=== PATIENT | female | born 1940 | race African-American/Black ===

== ENCOUNTER 2017-04-15 16:23 | Inpatient (IN) ==
--- NOTE | 2017-04-15 17:01 | Emergency Department Note ---
Disposition Clinical Impression: Hip fracture, left Qualifiers: Encounter type: initial encounter Fracture type: closed Qualified Code(s): S72.002A - Fracture of unspecified part of neck of left femur, initial encounter for closed fracture Disposition: Admitted As Inpatient Condition: Fair Fall HPI - General Chief Complaint: ED Extremity Injury, Lower Stated Complaint: fall, hip injury Time Seen by Provider: 04/15/17 16:38 Source: patient, EMS Mode of arrival: EMS Limitations: no limitations Nursing Notes Reviewed: Yes Vital Signs Reviewed: Yes - History of Present Illness HPI Narrative: 77-year-old female past medical history COPD, hypertension, CVA, CAD, and seizures, presents the emergency department after a fall a local gas station. She reports that she was going in to pay for the gas and tripped on a step in through the door. She states that she fell backwards and landed directly on her left hip, with what does not seem like an axial load on the spine. Her pain is lateral the superior aspect of the femur. He reports no preceding dizziness, and no LOC. She remembers the event in its entirety. She reports that she did not hit her head when she fell. She denies any focal neurologic symptoms. She denies recent illnesses, fevers, chills, dyspnea, chest pain, abdominal pain, nausea, vomiting, change in bowels, or dysuria. 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[employer] Fall From: standing Fall Witnessed: yes Place Fall Occurred: other - Related Data Home Medications Medication Instructions Recorded Confirmed Aspirin [Lo-Dose Aspirin EC] 81 mg PO DAILY 08/15/15 04/15/17 Metoprolol XL (24 HR) Succ [Toprol 25 mg PO DAILY 08/15/15 04/15/17 XL] Simvastatin [Zocor] 40 mg PO HS 08/15/15 04/15/17 Fluticasone/Salmeterol [Advair 1 puff IH BID PRN 02/05/16 04/15/17 100-50 Diskus] Alendronate Sodium [Fosamax] 70 mg PO MO 03/18/16 04/15/17 Cholecalciferol (Vitamin D3) 50,000 unit PO QWEEK 03/18/16 04/15/17 [Vitamin D] Methotrexate [Otrexup] 7.5 mg PO MO 03/18/16 04/15/17 Albuterol Sulfate [Albuterol 2 puff IH Q4H PRN 04/15/17 04/15/17 Inhaler] LevETIRAcetam [Keppra] 500 mg PO BID 04/15/17 04/15/17 Lisinopril/Hydrochlorothiazide 1 each PO DAILY 04/15/17 04/15/17 [Zestoretic 10-12.5 mg Tablet] Allergies Allergy/AdvReac Type Severity Reaction Status Date / Time Iodinated Contrast- Oral and Allergy Hives Verified 03/18/16 11:41 IV Dye All systems ED: reviewed and negative except as stated. Review of Systems: As Per HPI Cardiovascular: Denies: chest pain Respiratory: Denies: dyspnea Gastrointestinal: Denies: nausea, vomiting Fall PMH - Past Medical History Medical history: Reports: hyperlipidemia, hypertension, myocardial infarction, seizures Psychiatric history: Reports: no psych history - Social History Smoking Status: Never smoker Alcohol use: Reports: none Drug use: Reports: none Physical Exam - General Limitations: no limitations General appearance: alert, in no apparent distress - Head Head exam: atraumatic, normocephalic, normal inspection - Eye Eye exam: Present: normal appearance, PERRL, EOMI. Absent: scleral icterus, conjunctival injection - ENT ENT exam: mucous membranes moist - Neck Neck exam: Present: normal inspection, full ROM. Absent: tenderness - Chest Chest inspection: Present: symmetric chest wall rise - Respiratory Respiratory exam: Present: normal lung sounds bilaterally - Cardiovascular Cardiovascular exam: Present: regular rate, normal rhythm, +S1, +S2 - Abdominal Exam Abdominal exam: Present: soft, Non-Tender, normal bowel sounds - Extremities Exam Extremities exam: Present: normal inspection, tenderness (Laterally along the left hip), normal capillary refill. Absent: full ROM, pedal edema, calf tenderness - Expanded Lower Extremity Exam Hip/Pelvis exam: Present: tenderness (Laterally along the left superior femur). Absent: laceration, ecchymosis, external rotation, internal rotation, shortening Course Vital Signs Temperature 98.1 F 04/15/17 16:29 Pulse Rate 71 04/15/17 16:29 Respiratory Rate 20 04/15/17 16:29 Blood Pressure 174/88 04/15/17 16:29 O2 Sat by Pulse Oximetry 100 04/15/17 16:29 Temperature 98.3 F 03/09/18 19:43 Pulse Rate 72 04/15/17 19:43 Respiratory Rate 18 04/15/17 19:43 Blood Pressure 182/81 04/15/17 19:43 O2 Sat by Pulse Oximetry 100 04/15/17 19:43 Oxygen Delivery Oxygen Delivery Room Air Fall - Lab Data Result diagrams: 04/15/17 17:46 04/15/17 17:46 Lab Results 04/15/17 04/15/17 04/15/17 Range/Units 17:46 17:46 17:46 WBC 5.6 (4.3-11.1) K/mcL RBC 3.69 L (3.82-4.97) M/mcL Hgb 10.3 L (11.5-15.4) g/dL Hct 33.8 L (35.3-44.9) % MCV 91.6 (83.0-100.0) fL MCH 27.9 L (28.0-33.3) pg MCHC 30.5 L (31.6-35.5) g/dL RDW 18.2 H (11.5-14.5) % Plt Count 95 L (140-400) K/mcL MPV TNP Immature Gran % 0.5 (0-4) % Seg Neutrophils % 75.4 % Lymphocytes % 15.5 % Monocytes % 5.7 % Eosinophils % 2.5 % Basophils % 0.4 % Neutrophils # 4.2 (1.6-8.9) K/mcL Lymphocytes # 0.9 (0.6-4.6) K/mcL Monocytes # 0.3 (0.0-1.3) K/mcL Eosinophils # 0.1 (0.0-0.6) K/mcL Basophils # 0.0 (0.0-0.2) K/mcL Immature Plt Fraction 5.6 (1.1-6.1) % PT 14.5 H (9.4-12.1) Seconds INR 1.3 Sodium 139 (136-145) mEq/L Potassium 3.8 (3.5-5.1) mEq/L Chloride 107 (98-107) mEq/L Carbon Dioxide 23 (23-29) mEq/L BUN 21 (8-23) mg/dL Creatinine 0.96 (0.60-1.20) mg/dL Est GFR ( Amer) > 60 (> 60) Est GFR (Non-Af Amer) 56 L (> 60) BUN/Creatinine Ratio 22 (6-26) Glucose 104 (70-105) mg/dL Calculated Osmolality 291 (280-300) Calcium 10.0 (8.6-10.3) mg/dL Attestation Statement - Attestation Attestation: I examined this patient and my medical decision-making was reviewed with the Resident Physician. I agree with the documented findings, disposition and treatment plan as described except to the extent set forth below. 77-year-old female presents ED because of injury from a fall. She had a mechanical fall landing on her left hip. Complains of pain in her left groin and left hip. She denies any injury to her head neck chest or abdomen. No back pain. No weakness. Pleasant elderly female in no apparent distress. Neck is nontender to palpation. Trachea midline. Chest clear to auscultation bilaterally. Abdomen soft and nontender. Thoracic and lumbar spine nontender. Pelvis is stable. She has tenderness localized to the left hip and some pain with log rolling but no pain with linear load. Distal pulses are normal. Extremities consistent with an intertrochanteric fracture of the left hip. On-call orthopedics were notified and she was admitted to medical service.
[2017-04-15] MEDS ORDERED: *HR* HYDROcodone/Acet 5/325 mg TABLET PO ONE (17:32)
[2017-04-15 17:58] LABS: Hemoglobin 10.3 g/dL (11.5-15.4); Red Cell Distribution Width 18.2 % (11.5-14.5)
[2017-04-15 18:00] LABS: Basophils % 0.4 %; Eosinophils # 0.1 K/mcL (0.0-0.6); Eosinophils % 2.5 %; Hematocrit 33.8 % (35.3-44.9); Immature Granulocytes % 0.5 % (0-4); Immature Platelets 5.6 % (1.1-6.1); Lymphocytes # 0.9 K/mcL (0.6-4.6); Lymphocytes % 15.5 %; Mean Corpuscular HGB Conc 30.5 g/dL (31.6-35.5); Mean Corpuscular Hemoglobin 27.9 pg (28.0-33.3); Mean Corpuscular Volume 91.6 fL (83.0-100.0); Monocytes # 0.3 K/mcL (0.0-1.3); Monocytes % 5.7 %; Neutrophils # 4.2 K/mcL (1.6-8.9); Red Blood Count 3.69 M/mcL (3.82-4.97); Segmented Neutrophils % 75.4 %
[2017-04-15 18:01] LABS: Platelet Count 95 K/mcL (140-400)
[2017-04-15 18:03] LABS: INR 1.3; Prothrombin Time 14.5 Seconds (9.4-12.1)
[2017-04-15 18:21] LABS: BUN/Creatinine Ratio 22 (6-26); Blood Urea Nitrogen 21 mg/dL (8-23); Carbon Dioxide 23 mEq/L (23-29); Chloride 107 mEq/L (98-107); Glucose 104 mg/dL (70-105); Osmolality,Calculated 291 (280-300); Potassium 3.8 mEq/L (3.5-5.1); Sodium 139 mEq/L (136-145); eGFR For African Americans > 60 (> 60); eGFR For Non-African Americans 56 (> 60)
[2017-04-15] MEDS ORDERED: Acetaminophen 325 MG TABLET PO PRN (18:53)
[2017-04-15] MEDS ORDERED: Naloxone 0.4 MG/ML INJ IVP PRN (18:53)
--- NOTE | 2017-04-15 19:01 | Internal Med History&Physical ---
Date of Encounter: 04/15/17 Time of Encounter: 18:59 Assessment and Plan (1) Intertrochanteric fracture of left hip Current visit: Yes Status: Acute Left intertrochanteric fracture after a fall Mobilization, pain control Orthopedic surgery consulted, nothing by mouth after midnight for possible surgical procedure IV fluids Medium risk surgery, low risk for cardiac complications Omeprazole for GI prophylaxis and subcutaneous tenderness heparin for DVT prophylaxis. The patient will be admitted as inpatient, expected to stay more than 2 midnights. Full code. Time spent on this admission 40 minutes Qualifiers: Encounter type: initial encounter Fracture type: closed Fracture alignment: nondisplaced Qualified Code(s): S72.145A - Nondisplaced intertrochanteric fracture of left femur, initial encounter for closed fracture (2) Accelerated hypertension Current visit: Yes Status: Acute Likely exacerbated by pain Continue lisinopril, hold hydrochlorothiazide Continue hydralazine IV as needed (3) Chronic kidney disease, stage III (moderate) Current visit: Yes Status: Acute (4) Rheumatoid arthritis Current visit: Yes Status: Acute Hold methotrexate for now Qualifiers: Rheumatoid arthritis location: unspecified site Rheumatoid factor presence : with rheumatoid factor Qualified Code(s): M05.9 - Rheumatoid arthritis with rheumatoid factor, unspecified (5) Pancytopenia Current visit: Yes Status: Acute (6) CAD (coronary artery disease) Current visit: Yes Status: Acute May continue aspirin and metoprolol Qualifiers: Coronary Disease-Associated Artery/Lesion type: [place] artery [place] vs. transplanted heart: [place] heart Associated angina: without angina Qualified Code(s): I25.10 - Atherosclerotic heart disease of [place] coronary artery without angina pectoris Internal Medicine - H&P: HPI Chief complaint: Left hip pain Admitted From: Emergency Dept History of present illness: Ms. Westfall is a 77 year old female with a past medical history of rheumatoid arthritis on methotrexate, chronic kidney disease stage III, CAD, COPD not oxygen dependent, seizure disorders and bicytopenia who came to the emergency room complaining of severe left hip pain 10 out of 10 in intensity after falling at a gas station. Patient says that she never lost consciousness, was never dizzy and did not hit her head, she tripped and fell backwards. The x- ray shows a left intertrochanteric fracture. Platelets are 95, patient received a dose of hydrocodone which helped with the pain. Denies any chest pain, short of breath, no abdominal pain, no dysuria. Blood pressure is elevated at 174/88 Past Med Surg Social Fam HX - Past Medical History Medical history: hyperlipidemia, hypertension, myocardial infarction, seizures, other (Chronic leukopenia, chronic kidney disease stage III, CAD/NE in 2009 with stents, COPD not oxygen dependent, seizure disorder, GERD, osteoporoses, pancytopenia, vitamin D deficiency) Psychiatric history: no psych history - Past Surgical History Surgical History: other (Cardiac catheterization with stents, right wrist cyst removal) - Social History Smoking Status: Never smoker Alcohol use: none Drug use: none - Additional Family History Additional family history: Brother with hypertension, NE and diabetes, father with myocardial infarction, mother with colon cancer Internal Medicine - H&P: Meds Aspirin [Lo-Dose Aspirin EC] 81 mg PO DAILY 08/15/15 [History] Metoprolol XL (24 HR) Succ [Toprol XL] 25 mg PO DAILY 08/15/15 [History] Simvastatin [Zocor] 40 mg PO HS 08/15/15 [History] Fluticasone/Salmeterol [Advair 100-50 Diskus] 1 puff IH BID PRN 02/05/16 [ History] Alendronate Sodium [Fosamax] 70 mg PO MO 03/18/16 [History] Cholecalciferol (Vitamin D3) [Vitamin D] 50,000 unit PO QWEEK 03/18/16 [History] Methotrexate [Otrexup] 7.5 mg PO MO 03/18/16 [History] Albuterol Sulfate [Albuterol Inhaler] 2 puff IH Q4H PRN 04/15/17 [History] LevETIRAcetam [Keppra] 500 mg PO BID 04/15/17 [History] Lisinopril/Hydrochlorothiazide [Zestoretic 10-12.5 mg Tablet] 1 each PO DAILY [History] 3 Allergy/AdvReac Type Severity Reaction Status Date / Time Iodinated Contrast- Oral and Allergy Hives Verified 03/18/16 11:41 IV Dye All Systems PM: A 10-system review of systems was performed and is negative for pertinent findings except as documented above in the HPI. Review of systems: No fevers or chills, other systems out of the 10 reviewed were negative - Constitutional Vitals: Temp Pulse Resp BP Pulse Ox 98.1 F 74 24 170/90 98 04/15/17 16:29 04/15/17 18:22 04/15/17 18:22 04/15/17 18:22 04/15/17 18:22 General appearance: Present: A&O X 3 - Head Head exam: Present: atraumatic, normocephalic - Eye Eye exam: Present: PERRL, conjuntiva pink, sclera anicteric Pupils: Present: PERRL - Neck Neck exam general surgery: Present: supple, trachea midline. Absent: lymphadenopathy - Respiratory Respiratory exam: Present: CTAB. Absent: accessory muscle use, rales, rhonchi, wheezes - Cardiovascular Cardiovascular exam: Present: RRR, +S1, +S2. Absent: diastolic murmur, gallop, rubs, systolic murmur - GI/Abdominal GI/Abdominal exam: Present: normal bowel sounds, soft, no peritoneal signs. Absent: distended, tenderness - Extremities Exam Extremities exam: Present: warm, radial pulses palpable and symmetrical. Absent : calf tenderness, cyanotic, pedal edema - Neurological Exam Neurological exam: Present: CN II-XII intact, oriented X3, no focal deficits. Absent: pronater drift, facial droop, speech deficit Additional comments: Swelling in the left hip, no ecchymoses - Skin Skin exam: Present: dry, intact Internal Med - H&P Results - Labs CBC & Chem 7: 04/15/17 17:46 04/15/17 17:46 Labs: Short CBC 04/15/17 Range/Units 17:46 WBC 5.6 (4.3-11.1) K/mcL Hgb 10.3 L (11.5-15.4) g/dL Hct 33.8 L (35.3-44.9) % Plt Count 95 L (140-400) K/mcL Neutrophils # 4.2 (1.6-8.9) K/mcL BMP 04/15/17 17:46 Sodium 139 Potassium 3.8 Chloride 107 Carbon Dioxide 23 BUN 21 Creatinine 0.96 Glucose 104 Calcium 10.0 - Impressions ITS Impressions Hip X-Ray 04/15/17 16:45 IMPRESSION: Left intertrochanteric fracture. D/ / 04/15/2017 17:23:37 Amari Hutson MD / josh Interpreting Provider: Amari Hutson MD
[2017-04-15] MEDS: 0.9 % Sodium Chloride 1,000 ML IVC SCH (20:08)
[2017-04-15] MEDS: levETIRAcetam 250 MG TABLET PO SCH (20:08)
[2017-04-15] MEDS: *HR* OxyCODONE Immed Rel 5 MG TABLET PO PRN (20:09)
[2017-04-15] MEDS: Metoprolol XL (24 HR) Succ 25 MG TAB.ER.24H PO SCH (22:29)
[2017-04-16 02:00] LABS: Hematocrit 29.7 % (35.3-44.9); Hemoglobin 9.2 g/dL (11.5-15.4); Mean Corpuscular Hemoglobin 28.1 pg (28.0-33.3); Mean Corpuscular Volume 90.8 fL (83.0-100.0); Red Blood Count 3.27 M/mcL (3.82-4.97); Red Cell Distribution Width 17.9 % (11.5-14.5)
[2017-04-16 02:01] LABS: Platelet Count 96 K/mcL (140-400)
[2017-04-16 02:04] LABS: INR 1.5
[2017-04-16 02:11] LABS: BUN/Creatinine Ratio 26 (6-26); Blood Urea Nitrogen 22 mg/dL (8-23); Calcium 9.4 mg/dL (8.6-10.3); Carbon Dioxide 23 mEq/L (23-29); Chloride 108 mEq/L (98-107); Chol/HDL Ratio 2.6 (0-4.9); Cholesterol 123 mg/dL (< 200); Glucose 145 mg/dL (70-105); HDL Cholesterol 48 mg/dL (40-59); LDL Cholesterol,Calculated 63 mg/dL (0-99); Osmolality,Calculated 292 (280-300); Potassium 4.4 mEq/L (3.5-5.1); Sodium 138 mEq/L (136-145); Triglycerides 60 mg/dL (< 150); eGFR For African Americans > 60 (> 60); eGFR For Non-African Americans > 60 (> 60)
[2017-04-16] MEDS ORDERED: Ondansetron 4 MG/2 ML VIAL IVP PRN (03:17)
[2017-04-16] MEDS: *HR* Heparin 5,000 UNIT/ML VIAL SQ SCH ×2 (05:49→17:10)
[2017-04-16] MEDS: *HR* HYDROcodone/Acet 5/325 mg TABLET PO PRN ×2 (07:34→20:40)
[2017-04-16] MEDS: Aspirin Enteric Coated 81 MG Tablet PO SCH (07:47)
[2017-04-16] MEDS: Metoprolol XL (24 HR) Succ 25 MG TAB.ER.24H PO SCH (07:47)
[2017-04-16] MEDS: levETIRAcetam 250 MG TABLET PO SCH ×2 (07:47→20:40)
--- NOTE | 2017-04-16 09:04 | Internal Med Progress Note ---
Date of Encounter: 04/16/17 Time of Encounter: 09:01 - Assessment and plan (1) Intertrochanteric fracture of left hip Current Visit: Yes Status: Acute Assessment and plan: Accidental left intertrochanteric fracture after a fall. Continue current pain control patient's pain seems to be appropriately controlled at this point. Patient remains nothing by mouth. Orthopedic surgery on board. Potential surgery today. She is a medium risk for surgery at a low risk for cardiac complications at this point. She is medically optimized. I will continue her beta blockers perioperatively. Recommend holding Pan inhibitors and hydrochlorothiazide which can be restarted postoperatively. I will continue her Keppra in the perioperative period Qualifiers: Encounter type: subsequent encounter Fracture type: closed Fracture alignment: nondisplaced Fracture healing: with routine healing Qualified Code(s): S72.145D - Nondisplaced intertrochanteric fracture of left femur, subsequent encounter for closed fracture with routine healing (2) Chronic kidney disease, stage III (moderate) Current Visit: Yes Status: Acute Assessment and plan: We will continue to monitor. Check serial BMP. - Time Spent With Patient 25 - 35 minutes - Subjective Interval history: Patient reports that her pain is better controlled since yesterday. She denies any new fevers or chills at this time. Denies any chest pain, shortness of breath - Constitutional Vitals: Temp Pulse Resp BP Pulse Ox 98.7 F 82 16 160/71 98 04/16/17 06:39 04/16/17 06:39 04/16/17 06:39 04/16/17 06:39 04/16/17 07:37 General appearance: Present: A&O X 3 Exam: GENERAL: Alert, moderate distress, cooperative EYES: PERRLA, EOMI EARS: External ears normal, canals clear OROPHARYNX: Lips, mucosa, and tongue normal. Teeth and gums normal. Oropharynx normal. NECK: No jugulovenous distention, No carotid bruits, Carotid pulse normal contour, Supple LUNGS: Lungs clear to auscultation, Good diaphragmatic excursion CARDIAC: Normal S1 and S2; no rubs, murmurs, or gallops ABDOMEN: Abdomen soft, non-tender, BS normal, No masses or organomegaly EXTREMITIES: Left lower extremity: Tenderness to palpation over the left greater trochanter. External rotation and shortening noted as compared to right lower extremity NEURO: Gait normal. Reflexes normal and symmetric. Sensation grossly intact, Cranial nerves II-XII intact PULSES: 2+ radial, 2+ carotid Rest of the exam is non contributory Internal Medicine: Result - Labs CBC & Chem 7: 04/16/17 01:34 04/16/17 01:34 Labs: Short CBC 04/16/17 Range/Units 01:34 WBC 9.2 D (4.3-11.1) K/mcL Hgb 9.2 L (11.5-15.4) g/dL Hct 29.7 L (35.3-44.9) % Plt Count 96 L (140-400) K/mcL BMP 04/16/17 01:34 Sodium 138 Potassium 4.4 Chloride 108 H Carbon Dioxide 23 BUN 22 Creatinine 0.85 Glucose 145 H Calcium 9.4 - ABG Interpretation ABG results: PT/INR, D-dimer PT 16.0 Seconds (9.4-12.1) H 04/16/17 01:34 Consult Discharge Plan - Plan Referrals: Giorgio Landis MD [Primary Care Provider] -
[2017-04-16] MEDS: 0.9 % Sodium Chloride 1,000 ML IVC SCH (09:20)
--- NOTE | 2017-04-16 10:44 | Orthopedic Consult Note ---
Date of Encounter: 04/16/17 Time of Encounter: 10:42 Assessment and Plan (1) Intertrochanteric fracture of left hip Current Visit: Yes Status: Acute The diagnosis and treatment options were discussed with Bonnie. After discussing the pros and cons of treatment options including non-operative and operative intervention, the patient has elected to proceed with left hip cephallomedullary nail to allow for the patient to get out of bed and ambulate. The risks and benefits of the procedure were fully explained in detail, including but not limited to the risk of infection, neurovascular injury, continued pain or stiffness, failure of surgery, reinjury, or need for additional surgery, DVT, PE, general risks of anesthesia and loss of limb or life. No guarantees were given or implied and all questions were answered. The patient understands all the risks and does wish to proceed with written consent. Surgery will be done today. NPO. Cleared by medicine. Qualifiers: Encounter type: subsequent encounter Fracture type: closed Fracture alignment: displaced Fracture healing: with routine healing Qualified Code(s ): S72.142D - Displaced intertrochanteric fracture of left femur, subsequent encounter for closed fracture with routine healing History of Present Illness HPI: Ms. Westfall is a 77 year old female who had a mechanical fall yesterday. She tripped over a cement block and a gas station and fell onto her left hip. She had immediate pain and deformity in the left hip and was brought to the emergency department. Imaging at that time showed a displaced left intertrochanteric fracture so she was admitted for definitive management. She denies any chest pain, shortness of breath loss of consciousness prior to the fall. No pain in any of her other extremities. Past Med Surg Social Fam HX - Past Medical History Medical history: hyperlipidemia, hypertension, myocardial infarction, seizures Psychiatric history: no psych history - Past Surgical History Surgical History: other - Social History Smoking Status: Never smoker Alcohol use: none Drug use: none Medications and Allergies Aspirin [Lo-Dose Aspirin EC] 81 mg PO DAILY 08/15/15 [History] Metoprolol XL (24 HR) Succ [Toprol XL] 25 mg PO DAILY 08/15/15 [History] Simvastatin [Zocor] 40 mg PO HS 08/15/15 [History] Fluticasone/Salmeterol [Advair 100-50 Diskus] 1 puff IH BID PRN 02/05/16 [ History] Alendronate Sodium [Fosamax] 70 mg PO MO 03/18/16 [History] Cholecalciferol (Vitamin D3) [Vitamin D] 50,000 unit PO QWEEK 03/18/16 [History] Methotrexate [Otrexup] 7.5 mg PO MO 03/18/16 [History] Albuterol Sulfate [Albuterol Inhaler] 2 puff IH Q4H PRN 04/15/17 [History] LevETIRAcetam [Keppra] 500 mg PO BID 04/15/17 [History] Lisinopril/Hydrochlorothiazide [Zestoretic 10-12.5 mg Tablet] 1 each PO DAILY [History] 3 Allergy/AdvReac Type Severity Reaction Status Date / Time Iodinated Contrast- Oral and Allergy Hives Verified 03/18/16 11:41 IV Dye All Systems Reviewed: The remainder of the systems were reviewed and are negative Physical Exam - Constitutional Vitals: Temp Pulse Resp BP Pulse Ox 98.7 F 82 16 160/71 98 04/16/17 06:39 04/16/17 06:39 04/16/17 06:39 04/16/17 06:39 04/16/17 07:37 Exam: Consult Exam: Constitutional -Vitals reviewed -The patient is well developed and well nourished. -Mood is pleasant. -The patient is well groomed. Psychiatric -The patient is fully alert and oriented x 3. Respiratory: -Respiratory effort normal Abdomen: -Soft abdomen -Non tender -Non distended: Left upper extremity: -No deformities. The overlying skin is intact. No obvious signs of acute trauma. -No tenderness to palpation throughout. -No significant pain with passive motion of the shoulder, elbow, wrist, and fingers within the limits of the bed. -Able to make an "OK" sign, cross the index and long fingers, and extend the thumb. -Sensation grossly intact to light touch throughout the median, radial, and ulnar distributions. -Radial pulse is present; Fingers have good capillary refill. Right upper extremity: -No deformities. The overlying skin is intact. No obvious signs of acute trauma. -No tenderness to palpation throughout. -No significant pain with passive motion of the shoulder, elbow, wrist, and fingers within the limits of the bed. -Able to make an "OK" sign, cross the index and long fingers, and extend the thumb. -Sensation grossly intact to light touch throughout the median, radial, and ulnar distributions. -Radial pulse is present; Fingers have good capillary refill. Left lower extremity: -Extremity short and externally rotated -Pain with logroll and internal rotation at the hip -Able to dorsiflex and plantarflex the ankle and toes. -Sensation is grossly intact to light touch throughout the sural, saphenous, superficial peroneal, and deep peroneal distributions. -Toes have good capillary refill. Right lower extremity: -No deformities. The overlying skin is intact. No obvious signs of acute trauma. -No tenderness to palpation throughout. -No pain with passive motion of the hip, knee, ankle, and toes within the limits of the bed. -No pain with axial loading of the thigh. -Able to dorsiflex and plantarflex the ankle and toes. -Sensation is grossly intact to light touch throughout the sural, saphenous, superficial peroneal, and deep peroneal distributions. -Toes have good capillary refill. Results - Labs Result Diagrams: 04/16/17 01:34 04/16/17 01:34 Labs: Abnormal lab results RBC 3.27 M/mcL (3.82-4.97) L 04/16/17 01:34 Hgb 9.2 g/dL (11.5-15.4) L 04/16/17 01:34 Hct 29.7 % (35.3-44.9) L 04/16/17 01:34 MCHC 31.0 g/dL (31.6-35.5) L 04/16/17:34 RDW 17.9 % (11.5-14.5) H 04/16/17 01:34 Plt Count 96 K/mcL (140-400) L 04/16/17 01:34 PT 16.0 Seconds (9.4-12.1) H 04/16/17 01:34 Chloride 108 mEq/L (98-107) H 04/16/17 01:34 Glucose 145 mg/dL (70-105) H 04/16/17 01:34 H & H 04/16/17 Range/Units 01:34 Hgb 9.2 L (11.5-15.4) g/dL Hct 29.7 L (35.3-44.9) % All other labs normal. - Diagnostic results Hip x-ray: report reviewed (Displaced left intertrochanteric fracture), image reviewed Consult Discharge Plan - Plan Referrals: Giorgio Landis MD [Primary Care Provider] -
--- NOTE | 2017-04-16 11:59 | Anesthesia Evaluation PreOp ---
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: Seizures (one seizure 6 years ago; takes Keppra now) Other Medical History: Renal (ckd III), GERD, Other (chronic leukopenia, pancytopenia, vit D deficiency) Anesthesia History: No Prior Anesthetic Complications Alcohol Use: none Drug use: none Medications and Allergies Aspirin [Lo-Dose Aspirin EC] 81 mg PO DAILY 08/15/15 [History] Metoprolol XL (24 HR) Succ [Toprol XL] 25 mg PO DAILY 08/15/15 [History] Simvastatin [Zocor] 40 mg PO HS 08/15/15 [History] Fluticasone/Salmeterol [Advair 100-50 Diskus] 1 puff IH BID PRN 02/05/16 [ History] Alendronate Sodium [Fosamax] 70 mg PO MO 03/18/16 [History] Cholecalciferol (Vitamin D3) [Vitamin D] 50,000 unit PO QWEEK 03/18/16 [History] Methotrexate [Otrexup] 7.5 mg PO MO 03/18/16 [History] Albuterol Sulfate [Albuterol Inhaler] 2 puff IH Q4H PRN 04/15/17 [History] LevETIRAcetam [Keppra] 500 mg PO BID 04/15/17 [History] Lisinopril/Hydrochlorothiazide [Zestoretic 10-12.5 mg Tablet] 1 each PO DAILY [History] 3 Allergy/AdvReac Type Severity Reaction Status Date / Time Iodinated Contrast- Oral and Allergy Hives Verified 03/18/16 11:41 IV Dye - Meds/Allergy Pre-op Review Medications Reviewed: Yes Allergies Reviewed: Yes Beta Blockers on Current Med List: Yes (metoprolol) If Beta Blockers taken, Date/Time (Last Dose taken): 04-16-17 metoprolol 7:47 Anesthesia Results - Labs 04/16/17 01:34 04/16/17 01:34 Anesthesia Exam Last Vital Signs Temp 98.6 F 04/16/17 10:41 Pulse 77 04/16/17 10:41 Resp 16 04/16/17 10:41 BP 143/76 03/10/18 10:41 Pulse Ox 96 04/16/17 10:41 Weight: 76 kg NPO (# of Hours): > 8 hrs - HEENT Pupil (Motor): Pupils equal, EOMI Mallampati: III Teeth: Poor dentition Oral Opening: Greater than 3 - CONCERT MANAGER LOC: Oriented - Cardiac Rhythm: Regular Murmur: None - Pulmonary Breath Sounds: bilateral Clear Respiratory Effort: Symmetrical Anesthesia Assess/Plan ASA Score: 3 Modified Jeancarlos Scale for Level of Consciousness: Cooperative, oriented, and tranquil Anesthetic Plan: General Monitoring Plan: Standard Monitors Recovery Plan: PACU
[2017-04-16] MEDS ORDERED: *HR* Labetalol 20 MG/4 ML SYRINGE IVP PRN (12:05)
[2017-04-16] MEDS ORDERED: MORPHINE SUL Oral CONC 10 MG/0.5 ML ORAL.SYG SL PRN (12:05)
[2017-04-16] MEDS ORDERED: *HR* OxyCODONE Immed Rel 5 MG TABLET PO PRN ×2 (12:05→13:11)
[2017-04-16] MEDS ORDERED: EPHEDrine 50 MG/ML VIAL ONE (12:08)
[2017-04-16] MEDS ORDERED: Ondansetron 4 MG/2 ML VIAL ONE ×2 (12:08→13:01)
[2017-04-16] MEDS ORDERED: Lidocaine -MPF 2% 2 ML VIAL ONE (12:08)
[2017-04-16] MEDS ORDERED: Dexamethasone 4 MG/ML VIAL ONE ×2 (12:08→13:01)
[2017-04-16] MEDS ORDERED: *HR* Propofol 200 MG/20 ML VIAL IVP ONE (12:08)
[2017-04-16] MEDS ORDERED: *HR* FentaNYL (PF) 100 MCG/2 ML VIAL ONE (12:08)
[2017-04-16] MEDS ORDERED: *HR* PHENYLEPHRINE 1,000 MCG/10 ML SYRINGE IVP ONE (12:09)
[2017-04-16] MEDS ORDERED: Lacri-Lube 3.5 GM TUBE ONE (12:36)
--- NOTE | 2017-04-16 13:33 | Physician Discharge Referral ---
- Diagnosis (1) Intertrochanteric fracture of left hip Status: Acute - Transfer Medications Home Medications: Aspirin [Lo-Dose Aspirin EC] 81 mg PO DAILY 08/15/15 [History] Metoprolol XL (24 HR) Succ [Toprol XL] 25 mg PO DAILY 08/15/15 [History] Simvastatin [Zocor] 40 mg PO HS 08/15/15 [History] Fluticasone/Salmeterol [Advair 100-50 Diskus] 1 puff IH BID PRN 02/05/16 [ History] Alendronate Sodium [Fosamax] 70 mg PO MO 03/18/16 [History] Cholecalciferol (Vitamin D3) [Vitamin D] 50,000 unit PO QWEEK 03/18/16 [History] Methotrexate [Otrexup] 7.5 mg PO MO 03/18/16 [History] Albuterol Sulfate [Albuterol Inhaler] 2 puff IH Q4H PRN 04/15/17 [History] LevETIRAcetam [Keppra] 500 mg PO BID 04/15/17 [History] Lisinopril/Hydrochlorothiazide [Zestoretic 10-12.5 mg Tablet] 1 each PO DAILY [History] Allergies/Adverse Reactions: 3 Allergy/AdvReac Type Severity Reaction Status Date / Time Iodinated Contrast- Oral and Allergy Hives Verified 03/18/16 11:41 IV Dye - Respiratory Orders Smoking Cessation: Smoking cessation has been advised. For more information, call the [place] Tobacco Quit Line at 0-301-YPHE-NOW. - Mobility Orders Ambulate - Rehabiliation Orders Rehab Potential: Fair Rehab Orders: ROM Exercises, Evaluation for Physical Therapy, Evaluation for Occupational Therapy - Treatments List/Other: SHELTER DISCHARGE INSTRUCTIONS Dr. Cullen PROCEDURE PERFORMED Reduction and fixation of left hip. Incision care -Keep clear dressing in place. If dressing becomes saturated, may perform daily dressing changes to the left hip with dry gauze and either paper tape or medipore tape. -Avoid soaking wound in water (no hot tubs, bathtubs, swimming pools). -May shower after 2 weeks from surgery date. Carefully wash incision with soap and water. Gently pat it dry. Don't rub the incision, or apply creams or lotions. Sit on a shower stool when showering to keep from falling. Weight bearing status -Weightbearing as tolerated to the bilateral lower extremities. Medications -Pain medication per the discharging medical doctor -Enteric coated aspirin 325 mg by mouth twice per day for 28 days from the date of the surgery. [-Resume 50,000 units of vitamin D2 weekly and 1200 mg of calcium supplementation per day.] Other -Knee high EMMA hose 23 hours per day -Consult physical and occupational therapy for mobilization. -Up to chair with assistance at least twice per day. -Follow up with your primary care physician to discuss testing for bone mineral density. Follow-Up -Follow-up with Dr. Cullen in office in 2 weeks from the surgery date for a post-operative evaluation. -Call the office at [phone] to schedule or confirm your appointment. -Follow up with your primary care physician to discuss testing for bone mineral density. - Diet Orders Regular CERTIFICATION: I certify that the transfer of the above named patient to an Extended Care Facility is necessary for the continuing treatment of the diagnosis listed. The above information is true and accurate reflection of patient's current condition. Confidential - Redisclosure prohibited without a patient's written consent.
--- NOTE | 2017-04-16 13:36 | Orthopedic Operative Note ---
Date of procedure: 04/16/17 Pre-op diagnosis: Left hip intertrochanteric fracture Post-op diagnosis: same Procedure: INDICATIONS: This is a 77-year-old female who had a mechanical fall and sustained a displaced left hip intertrochanteric fracture. After discussing the procedure at length, the patient elected for operative management with a cephalomedullary nail of the left hip. The risks and benefits of the procedure were fully explained. Those risks include but are not limited to, infection, neurovascular injury, continued pain, arthritis, stiffness, further injury, need for further surgery, DVT, PE, loss of limb, and loss of life. The patient understood all of these risks and wished to proceed. Informed consent was obtained. No guarantees were stated or implied. OPERATIVE REPORT: The patient was identified in the holding area. The left lower extremity was marked, the patient was taken to the operating room and general anesthetic was administered on the hospital bed. The patients head, neck and airway were protected by anesthesia through the case. The patient was then transferred to the fracture table and placed in the supine position with a well padded perineal post. All bony prominences were well padded. The left leg was attached to the traction device on the fracture bed. The right leg was then placed in a well leg [place] and positioned out of the way of fluoroscopy. We then utilized the fracture table to reduce the fracture and obtained fluoroscopic images in AP and lateral planes confirming alignment. The left lower extremity was then prepped and draped in the normal manner. Preoperative antibiotics were given prior to incision. A surgical time out protocol was then performed. We then made an incision just proximal to the greater trochanter. We dissected down and through the IT band. We were then able to palpate the greater trochanter and we placed a guidepin in the appropriate starting position on the greater trochanter. We advanced the guidepin and the proximal femur slightly and then confirmed the position in both AP and lateral planes. After confirming acceptable pin placement, we advanced the pin to the level of the lesser trochanter. We then utilized an entry reamer over the pin to open up the canal. We then placed a 11 mm size nail. We advanced the nail to the appropriate depth taking care to avoid any further injury. When the nail was at the appropriate depth we used the outrigger to place the blade into the femoral head. We confirmed central location of the blade on both AP and lateral x-rays. We used the outrigger to obtain compression across the fracture site that was visible on fluoroscopy. After confirming acceptable alignment of the fracture, we then used the guide to place a distal locking screw from lateral to medial. At this point we obtained final fluoroscopic images of the left hip and femur in both AP and lateral planes. We then thoroughly irrigated the wounds and closed the IT band with 0 Vicryl. Subcutaneous tissues were closed with 2-0 stratafix. Skin was closed with zipline. We then placed sterile dressings the patient was awoken by anesthesia and transferred to PACU in stable condition. Patient tolerated the procedure well. Postop plan: The patient will be transferred back to the floor and will be weight-bearing as tolerated postop. Implants: Synthes 11 mm short TFN nail Complications: none Anesthesia: NATALI Surgeon: Dwain Cullen Was there an retirement assistant present: No Estimated blood loss (cc): 50 Condition: stable Disposition: PACU
--- NOTE | 2017-04-16 14:32 | Anesthesia Evaluation Post Op ---
Date of Encounter: 04/16/17 Time of Encounter: 14:31 - Vital Signs Vital Signs: Last Vital Signs Temp 98.6 F 04/16/17 14:17 Pulse 76 04/16/17 14:17 Resp 20 04/16/17 14:17 BP 150/81 04/16/17 14:17 Pulse Ox 98 04/16/17 14:17 - Lungs Lungs: Clear Ascult./Percussion - Airway Airway: Non-obstructed - Cardiovascular Regular Rate - Mental Status Mental Status: Alert & Oriented, Answers Appropriately - Pain Pain Scale: 2 - Nausea Vomiting Nausea Vomiting: Not Present - Hydration Hydration: NPO - Discharge PostOp Status: Transfer Patient to floor
[2017-04-16] MEDS: CeFAZolin Premix DUPLEX 2,000 MG/50 ML BAG IVPB SCH (20:40)
[2017-04-17 04:02] LABS: Basophils % 0.1 %; Hematocrit 22.6 % (35.3-44.9); Immature Granulocytes % 0.5 % (0-4); Mean Corpuscular HGB Conc 30.5 g/dL (31.6-35.5); Nucleated Red Blood Cells 0.2 /100 WBC (0)
[2017-04-17 04:04] LABS: Hemoglobin 6.9 g/dL (11.5-15.4); Immature Platelets 6.1 % (1.1-6.1); Lymphocytes # 1.1 K/mcL (0.6-4.6); Lymphocytes % 8.9 %; Mean Corpuscular Hemoglobin 28.4 pg (28.0-33.3); Monocytes # 0.8 K/mcL (0.0-1.3); Monocytes % 6.8 %; Neutrophils # 10.3 K/mcL (1.6-8.9); Platelet Count 93 K/mcL (140-400); Red Blood Count 2.43 M/mcL (3.82-4.97); Red Cell Distribution Width 19.1 % (11.5-14.5); Segmented Neutrophils % 83.7 %
[2017-04-17] MEDS: CeFAZolin Premix DUPLEX 2,000 MG/50 ML BAG IVPB SCH (04:12)
[2017-04-17 04:30] LABS: BUN/Creatinine Ratio 24 (6-26); Blood Urea Nitrogen 24 mg/dL (8-23); Calcium 8.1 mg/dL (8.6-10.3); Carbon Dioxide 24 mEq/L (23-29); Chloride 109 mEq/L (98-107); Glucose 155 mg/dL (70-105); Osmolality,Calculated 291 (280-300); Potassium 4.5 mEq/L (3.5-5.1); Sodium 137 mEq/L (136-145); eGFR For African Americans > 60 (> 60); eGFR For Non-African Americans 53 (> 60)
[2017-04-17] MEDS: *HR* Heparin 5,000 UNIT/ML VIAL SQ SCH ×2 (05:38→16:09)
[2017-04-17] MEDS: Metoprolol XL (24 HR) Succ 25 MG TAB.ER.24H PO SCH (07:39)
[2017-04-17] MEDS: Aspirin Enteric Coated 81 MG Tablet PO SCH (07:39)
[2017-04-17] MEDS: levETIRAcetam 250 MG TABLET PO SCH ×2 (07:39→19:43)
[2017-04-17] MEDS: *HR* HYDROcodone/Acet 5/325 mg TABLET PO PRN ×2 (07:39→19:43)
[2017-04-17] MEDS ORDERED: 0.9 % Sodium Chloride 250 ML ONE ×2 (10:06→13:33)
--- NOTE | 2017-04-17 10:46 | Orthopedics Progress Note ---
Date of Encounter: 04/17/17 Time of Encounter: 10:44 - Assessment and Plan (1) Intertrochanteric fracture of left hip Current Visit: Yes Status: Acute Qualifiers: Encounter type: subsequent encounter Fracture type: closed Fracture alignment: displaced Fracture healing: with routine healing Qualified Code(s ): S72.142D - Displaced intertrochanteric fracture of left femur, subsequent encounter for closed fracture with routine healing Subjective Interval history: S: Doing fine first day s/p L hip CMN. Pain well controlled. Has been up to side of bed. Denies cp/sob. No f/c/ns. O: AFVSS Hg 6.9 GEN -- NAD, AAOx3 LLE Dress c/d/i +EHL/PF/DF DNVI s/s/t/sp/dp A/P: POD#1 s/p L CMN WBAT with PT PO pain control 2u PRBC ordered Discharge planning for rehab Objective Vital signs: Vital Signs Temp Pulse Resp BP Pulse Ox 04/17/17 10:39 98.1 F 83 14 97/59 04/17/17 10:24 97.7 F 83 16 90/53 96 04/17/17 06:28 98.4 F 81 16 95/58 98 04/17/17 04:34 98.3 F 77 16 92/63 99 04/17/17 00:08 97.8 F 75 16 98/59 99 04/16/17 20:49 108/53 04/16/17 19:40 97.5 F L 72 17 92/59 96 04/16/17 19:38 92/59 04/16/17 19:35 97.5 F L 65 18 78/45 95 04/16/17 18:07 98.7 F 86 16 96/61 93 04/16/17 17:08 98.2 F 81 16 127/65 94 04/16/17 15:45 98.2 F 76 15 135/72 100 04/16/17 15:12 73 18 150/75 99 04/16/17 15:00 98.0 F 73 18 150/75 99 04/16/17 14:38 98.0 F 75 16 159/84 97 04/16/17 14:17 98.6 F 76 20 150/81 98 04/16/17 14:07 76 20 151/79 98 04/16/17 13:57 80 20 149/79 98 04/16/17 13:47 98.6 F 86 22 145/79 92 04/16/17 10:41 98.6 F 77 16 143/76 96 Intake and Output 04/16/17 04/17/17 04/17/17 22:59 07:59 15:59 Intake Total 240 / 240 Output Total Balance 240 / 240 Intake: IV Fluids Ancef Premix DUPLEX 2,000 mg In 50 ml @ 100 mls/hr IVPB Q8H DUGLAS Rx#:[id number] Oral 240 / 240 Blood Product 0 / 0 Rbcs Leuko Poor As-1 Unit 0 / 0 [id number] Output: Catheter Other: Meal Breakfast Percent of Meal Consumed 80% # Voids Weight Patient Weight 04/18/17 00:59 Weight 80.8 kg - Labs CBC & BMP: 04/17/17 03:14 04/17/17 03:14 Labs: Abnormal lab results WBC 12.3 K/mcL (4.3-11.1) H 04/17/17 03:14 RBC 2.43 M/mcL (3.82-4.97) L 04/17/17 03:14 Hgb 6.9 g/dL (11.5-15.4) L D 04/17/17 03:14 Hct 22.6 % (35.3-44.9) L 04/17/17 03:14 MCHC 30.5 g/dL (31.6-35.5) L 04/17/17 03:14 RDW 19.1 % (11.5-14.5) H 04/17/17 03:14 Plt Count 93 K/mcL (140-400) L 04/17/17 03:14 Neutrophils # 10.3 K/mcL (1.6-8.9) H 04/17/17 03:14 Nucleated RBCs/100 WBC 0.2 /100 WBC (0) H 04/17/17 03:14 PT 16.0 Seconds (9.4-12.1) H 04/16/17 01:34 Chloride 109 mEq/L (98-107) H 04/17/17 03:14 BUN 24 mg/dL (8-23) H 04/17/17 03:14 Est GFR (Non-Af Amer) 53 (> 60) L 04/17/17 03:14 Glucose 155 mg/dL (70-105) H 04/17/17 03:14 Calcium 8.1 mg/dL (8.6-10.3) L 04/17/17 03:14 - VTE Documentation of Mechanical Device: Intermittent pneumatic compression device Consult Discharge Plan - Plan Additional Instructions: LONG TERM DISCHARGE INSTRUCTIONS Dr. Cullen PROCEDURE PERFORMED Reduction and fixation of left hip. Incision care -Keep clear dressing in place. If dressing becomes saturated, may perform daily dressing changes to the left hip with dry gauze and either paper tape or medipore tape. -Avoid soaking wound in water (no hot tubs, bathtubs, swimming pools). -May shower after 2 weeks from surgery date. Carefully wash incision with soap and water. Gently pat it dry. Don't rub the incision, or apply creams or lotions. Sit on a shower stool when showering to keep from falling. Weight bearing status -Weightbearing as tolerated to the bilateral lower extremities. Medications -Pain medication per the discharging medical doctor -Enteric coated aspirin 325 mg by mouth twice per day for 28 days from the date of the surgery. [-Resume 50,000 units of vitamin D2 weekly and 1200 mg of calcium supplementation per day.] Other -Knee high EMMA hose 23 hours per day -Consult physical and occupational therapy for mobilization. -Up to chair with assistance at least twice per day. -Follow up with your primary care physician to discuss testing for bone mineral density. Follow-Up -Follow-up with Dr. Cullen in office in 2 weeks from the surgery date for a post-operative evaluation. -Call the office at [phone] to schedule or confirm your appointment. -Follow up with your primary care physician to discuss testing for bone mineral density. Referrals: Giorgio Landis MD [Primary Care Provider] -
--- NOTE | 2017-04-17 11:26 | Internal Med Progress Note ---
Date of Encounter: 04/17/17 Time of Encounter: 11:24 - Assessment and plan (1) Acute blood loss as cause of postoperative anemia Current Visit: Yes Status: Acute Assessment and plan: Postoperative blood loss anemia. Hemoglobin 6.9. Planning for 2 units of PRBCs. We will trend CBC in the morning. Patient does not appear symptomatic at this point but will continue to closely monitor given her age and comorbidities. (2) Intertrochanteric fracture of left hip Current Visit: Yes Status: Acute Assessment and plan: Accidental left intertrochanteric fracture after a fall. Continue current pain control patient's pain seems to be appropriately controlled at this point. Patient remains nothing by mouth. Orthopedic surgery on board. Potential surgery today. She is a medium risk for surgery at a low risk for cardiac complications at this point. She is medically optimized. I will continue her beta blockers perioperatively. Recommend holding Pan inhibitors and hydrochlorothiazide which can be restarted postoperatively. I will continue her Keppra in the perioperative period 04/17/2017-postop day 1 ORIF intertrochanteric fracture neck femur of the left side. Pain control is adequate. Patient does have postop anemia which is being addressed with PRBC transfusion We will continue to work with physical therapy. Hopefully will be discharged to rehabilitation within the coming few days Qualifiers: Encounter type: subsequent encounter Fracture type: closed Fracture alignment: displaced Fracture healing: with routine healing Qualified Code(s ): S72.142D - Displaced intertrochanteric fracture of left femur, subsequent encounter for closed fracture with routine healing (3) Chronic kidney disease, stage III (moderate) Current Visit: Yes Status: Acute Assessment and plan: We will continue to monitor. Check serial BMP. - Time Spent With Patient 25 - 35 minutes - Subjective Interval history: Patient seen today status post surgery yesterday. Denies any fevers or chills. Patient states her pain is better controlled. She also stated that she got up with the walker yesterday - Constitutional Vitals: Temp Pulse Resp BP Pulse Ox 98.1 F 83 14 97/59 96 04/17/17 10:39 04/17/17 10:39 04/17/17 10:39 04/17/17 10:39 04/17/17 10:24 General appearance: Present: A&O X 3 Exam: GENERAL: Alert, no distress, cooperative EYES: PERRLA, EOMI EARS: External ears normal, canals clear OROPHARYNX: Lips, mucosa, and tongue normal. Teeth and gums normal. Oropharynx normal. NECK: No jugulovenous distention, No carotid bruits, Carotid pulse normal contour, Supple LUNGS: Lungs clear to auscultation, Good diaphragmatic excursion CARDIAC: Normal S1 and S2; no rubs, murmurs, or gallops ABDOMEN: Abdomen soft, non-tender, BS normal, No masses or organomegaly EXTREMITIES: Postoperative bandage along the left hip lateral aspect. NEURO: Gait normal. Reflexes normal and symmetric. Sensation grossly intact, Cranial nerves II-XII intact PULSES: 2+ radial, 2+ carotid Rest of the exam is non contributory Internal Medicine: Result - Labs CBC & Chem 7: 04/17/17 03:14 04/17/17 03:14 Labs: Short CBC 04/17/17 Range/Units 03:14 WBC 12.3 H (4.3-11.1) K/mcL Hgb 6.9 L D (11.5-15.4) g/dL Hct 22.6 L (35.3-44.9) % Plt Count 93 L (140-400) K/mcL Neutrophils # 10.3 H (1.6-8.9) K/mcL BMP 04/17/17 03:14 Sodium 137 Potassium 4.5 Chloride 109 H Carbon Dioxide 24 BUN 24 H Creatinine 1.00 Glucose 155 H Calcium 8.1 L - ABG Interpretation ABG results: PT/INR, D-dimer PT 16.0 Seconds (9.4-12.1) H 04/16/17 01:34 - Impressions Impressions Hip X-Ray 04/16/17 00:00 IMPRESSION: Status post left proximal femur ORIF. Anatomic alignment with no acute complication. D/ / 04/16/2017 14:28:44 Sal Causey MD / [email or web address] Interpreting Provider: Sal Causey MD Fluoroscopy 04/16/17 13:31 IMPRESSION: Intraprocedural fluoroscopic spot images as above. See separate procedure report for more information. D/ / Marycarmen Bradford MD / Marycarmen Bradford MD Interpreting Provider: Marycarmen Bradford MD Hip X-Ray 04/16/17 13:32 IMPRESSION: Intraprocedural fluoroscopic spot images as above. See separate procedure report for more information. D/ / 04/17/2017 08:33:51 Marycarmen Bradford MD / cori Interpreting Provider: Marycarmen Bradford MD Hip X-Ray 04/16/17 13:37 IMPRESSION: Intraprocedural fluoroscopic spot images as above. See separate procedure report for more information. D/ / Marycarmen Bradford MD / Marycarmen Bradford MD Interpreting Provider: Marycarmen Bradford MD - VTE Documentation of Mechanical Device: Intermittent pneumatic compression device Consult Discharge Plan - Plan Additional Instructions: [facility] DISCHARGE INSTRUCTIONS Dr. Cullen PROCEDURE PERFORMED Reduction and fixation of left hip. Incision care -Keep clear dressing in place. If dressing becomes saturated, may perform daily dressing changes to the left hip with dry gauze and either paper tape or medipore tape. -Avoid soaking wound in water (no hot tubs, bathtubs, swimming pools). -May shower after 2 weeks from surgery date. Carefully wash incision with soap and water. Gently pat it dry. Don't rub the incision, or apply creams or lotions. Sit on a shower stool when showering to keep from falling. Weight bearing status -Weightbearing as tolerated to the bilateral lower extremities. Medications -Pain medication per the discharging medical doctor -Enteric coated aspirin 325 mg by mouth twice per day for 28 days from the date of the surgery. [-Resume 50,000 units of vitamin D2 weekly and 1200 mg of calcium supplementation per day.] Other -Knee high EMMA hose 23 hours per day -Consult physical and occupational therapy for mobilization. -Up to chair with assistance at least twice per day. -Follow up with your primary care physician to discuss testing for bone mineral density. Follow-Up -Follow-up with Dr. Cullen in office in 2 weeks from the surgery date for a post-operative evaluation. -Call the office at [phone] to schedule or confirm your appointment. -Follow up with your primary care physician to discuss testing for bone mineral density. Referrals: Giorgio Landis MD [Primary Care Provider] -
[2017-04-17] MEDS: *HR* OxyCODONE Immed Rel 5 MG TABLET PO PRN (22:11)
[2017-04-18 02:23] LABS: Hematocrit 27.4 % (35.3-44.9); Hemoglobin 8.8 g/dL (11.5-15.4)
[2017-04-18] MEDS: *HR* Heparin 5,000 UNIT/ML VIAL SQ SCH ×2 (06:19→16:27)
--- NOTE | 2017-04-18 07:49 | Orthopedics Progress Note ---
Date of Encounter: 04/18/17 Time of Encounter: 07:49 - Assessment and Plan (1) Intertrochanteric fracture of left hip Current Visit: Yes Status: Acute Qualifiers: Encounter type: subsequent encounter Fracture type: closed Fracture alignment: displaced Fracture healing: with routine healing Qualified Code(s ): S72.142D - Displaced intertrochanteric fracture of left femur, subsequent encounter for closed fracture with routine healing Subjective Interval history: S: Pain well controlled. Has been up to chair. Denies cp/sob. No f/c/ns. O:AFVSS Hg 8.8 GEN -- NAD, AAOx3 LLE Dress c/d/i +EHL/PF/DF DNVI s/s/t/sp/dp A/P: POD#2 s/p L CMN WBAT with PT PO pain control Discharge planning for rehab Objective Vital signs: Vital Signs Temp Pulse Resp BP Pulse Ox 04/18/17 06:38 97.8 F 87 18 110/74 95 04/18/17 02:00 98.1 F 90 16 119/69 93 04/17/17 19:57 98.8 F 91 16 112/67 95 04/17/17 16:03 98.1 F 81 16 114/59 98 04/17/17 13:59 98.0 F 88 17 97/59 95 04/17/17 13:44 98.0 F 92 17 103/67 96 04/17/17 13:06 98.3 F 89 15 94/53 97 04/17/17 10:39 98.1 F 83 14 97/59 04/17/17 10:24 97.7 F 83 16 90/53 96 Intake and Output 04/17/17 04/17/17 04/18/17 15:59 23:59 07:59 Intake Total 540 / 540 300 / 300 Output Total 150 / 150 300 / 300 Balance 390 / 390 300 / 300 -300 / -300 Intake: Oral 240 / 240 Blood Product 300 / 300 300 / 300 Rbcs Leuko Poor As-1 Unit 300 / 300 [id number] Rbcs Leuko Poor As-1 Unit 0 / 0 300 / 300 [id number] Output: Urine 150 / 150 300 / 300 Other: Meal Breakfast Percent of Meal Consumed 80% # Voids 1 1 - Labs CBC & BMP: 04/18/17 01:11 04/17/17 03:14 Labs: Abnormal lab results WBC 12.3 K/mcL (4.3-11.1) H 04/17/17 03:14 RBC 2.43 M/mcL (3.82-4.97) L 04/17/17 03:14 Hgb 8.8 g/dL (11.5-15.4) L D 04/18/17 01:11 Hct 27.4 % (35.3-44.9) L 04/18/17 01:11 MCHC 30.5 g/dL (31.6-35.5) L 04/17/17 03:14 RDW 19.1 % (11.5-14.5) H 04/17/17 03:14 Plt Count 93 K/mcL (140-400) L 04/17/17 03:14 Neutrophils # 10.3 K/mcL (1.6-8.9) H 04/17/17 03:14 Nucleated RBCs/100 WBC 0.2 /100 WBC (0) H 04/17/17 03:14 PT 16.0 Seconds (9.4-12.1) H 04/16/17 01:34 Chloride 109 mEq/L (98-107) H 04/17/17 03:14 BUN 24 mg/dL (8-23) H 04/17/17 03:14 Est GFR (Non-Af Amer) 53 (> 60) L 04/17/17 03:14 Glucose 155 mg/dL (70-105) H 04/17/17 03:14 Calcium 8.1 mg/dL (8.6-10.3) L 04/17/17 03:14 - VTE Documentation of Mechanical Device: Intermittent pneumatic compression device Consult Discharge Plan - Plan Additional Instructions: RESIDENTIAL DISCHARGE INSTRUCTIONS Dr. Subhash LANCASTER PERFORMED Reduction and fixation of left hip. Incision care -Keep clear dressing in place. If dressing becomes saturated, may perform daily dressing changes to the left hip with dry gauze and either paper tape or medipore tape. -Avoid soaking wound in water (no hot tubs, bathtubs, swimming pools). -May shower after 2 weeks from surgery date. Carefully wash incision with soap and water. Gently pat it dry. Don't rub the incision, or apply creams or lotions. Sit on a shower stool when showering to keep from falling. Weight bearing status -Weightbearing as tolerated to the bilateral lower extremities. Medications -Pain medication per the discharging medical doctor -Enteric coated aspirin 325 mg by mouth twice per day for 28 days from the date of the surgery. [-Resume 50,000 units of vitamin D2 weekly and 1200 mg of calcium supplementation per day.] Other -Knee high EMMA hose 23 hours per day -Consult physical and occupational therapy for mobilization. -Up to chair with assistance at least twice per day. -Follow up with your primary care physician to discuss testing for bone mineral density. Follow-Up -Follow-up with Dr. Cullen in office in 2 weeks from the surgery date for a post-operative evaluation. -Call the office at [phone] to schedule or confirm your appointment. -Follow up with your primary care physician to discuss testing for bone mineral density. Referrals: Giorgio Landis MD [Primary Care Provider] -
--- NOTE | 2017-04-18 08:07 | Discharge Summary ---
Orders not resulted at time of discharge: Pending orders 04/18/17 07:53 CBC no Diff [Complete Blood Count w/o Diff] [HEME] Stat Date of Encounter: 04/18/17 Time of Encounter: 08:00 - Discharge Diagnosis (1) Intertrochanteric fracture of left hip Priority: Primary Status: Acute Comments: Left intertrochanteric fracture after a fall s/p ORIF Qualifiers: Encounter type: subsequent encounter Fracture type: closed Fracture alignment: displaced Fracture healing: with routine healing Qualified Code(s ): S72.142D - Displaced intertrochanteric fracture of left femur, subsequent encounter for closed fracture with routine healing (2) Acute blood loss as cause of postoperative anemia Priority: Secondary Status: Acute Comments: Acute blood loss anemia postsurgery anemia (3) Accelerated hypertension Priority: Secondary Status: Acute (4) Chronic kidney disease, stage III (moderate) Priority: Secondary Status: Acute (5) Rheumatoid arthritis Priority: Secondary Status: Acute Qualifiers: Rheumatoid arthritis location: unspecified site Rheumatoid factor presence : with rheumatoid factor Qualified Code(s): M05.9 - Rheumatoid arthritis with rheumatoid factor, unspecified (6) Pancytopenia Priority: Secondary Status: Acute (7) CAD (coronary artery disease) Priority: Secondary Status: Acute Qualifiers: Coronary Disease-Associated Artery/Lesion type: [place] artery [place] vs. transplanted heart: [place] heart Associated angina: without angina Qualified Code(s): I25.10 - Atherosclerotic heart disease of [place] coronary artery without angina pectoris Hospital course: Ms. Westfall is a 77 year old female with a past medical history of rheumatoid arthritis on methotrexate, hyperlipidemia, hypertension, myocardial infarction, seizures, other (Chronic leukopenia, chronic kidney disease stage III, CAD/SD in 2009 with stents, COPD not oxygen dependent, seizure disorder, GERD, osteoporoses, pancytopenia, vitamin D deficiency) who came to the emergency room complaining of severe left hip pain 10 out of 10 in intensity after falling at a gas station. Patient said that she never lost consciousness, was never dizzy and did not hit her head, she tripped and fell backwards. The x- ray showed a left intertrochanteric fracture. Platelets were 95, Blood pressure was elevated at 174/88 likely due to pain. Underwent ORIF. HB dropped down to 6.9 after surgery, received 2 unit of RBCs. HB increased to 8.8, denies symptoms, no dark stools. Platelets have been stable in the 90s. Was given the option to stay another night but prefers to be discharged to rehab today. - Time Spent with Patient Total time spent providing and/or coordinating discharge services: Greater than 30 minutes (40 min) - Discharge Medications Prescriptions: HYDROcodone/Acet 5/325 mg [[place] 5-325 mg] 1 tab PO Q6HR PRN 7 Days #28 tablet PRN Reason: Moderate Pain Ferrous Sulfate [Iron] 325 mg PO BID #60 capsule.er Omeprazole [PriLOSEC] 40 mg PO DAILY@0630 #30 capsule.[address] Allen Medications: Aspirin [Lo-Dose Aspirin EC] 81 mg PO DAILY 08/15/15 [History] Metoprolol XL (24 HR) Succ [Toprol Xl] 25 mg PO DAILY 08/15/15 [History] Simvastatin [Zocor] 40 mg PO HS 08/15/15 [History] Fluticasone/Salmeterol [Advair 100-50 Diskus] 1 puff IH BID PRN 02/05/16 [ History] Alendronate Sodium [Fosamax] 70 mg PO MO 03/18/16 [History] Cholecalciferol (Vitamin D3) [Vitamin D3] 50,000 unit PO QWEEK 03/18/16 [History ] Methotrexate [Otrexup] 7.5 mg PO MO 03/18/16 [History] Albuterol Sulfate [Albuterol Inhaler] 2 puff IH Q4H PRN 04/15/17 [History] LevETIRAcetam [Keppra] 500 mg PO BID 04/15/17 [History] Lisinopril/Hydrochlorothiazide [Zestoretic 10-12.5 mg Tablet] 1 each PO DAILY [History] Ferrous Sulfate [Iron] 325 mg PO BID #60 capsule.er 04/18/17 [Rx] HYDROcodone/Acet 5/325 mg [[place] 5-325 mg] 1 tab PO Q6HR PRN 7 Days #28 tablet 04/18/17 [Rx] Omeprazole [PriLOSEC] 40 mg PO DAILY@0630 #30 capsule. 04/18/17 [Rx] Allergies/Adverse Reactions: 3 Allergy/AdvReac Type Severity Reaction Status Date / Time Iodinated Contrast- Oral and Allergy Hives Verified 03/18/16 11:41 IV Dye Date of admission: 04/15/17 18:56 Primary care physician: Giorgio Landis MD Consults: 04/15/17 19:57 Consult to Nutrition [CONS] Routine Comment: Consulting Provider: NUTRITION Reason for Dietary Consult: MST Score 04/16/17 14:44 Consult to Occupational Therapy [CONS] Routine Comment: Evaluate, develop and implement POC Reason for Consult: Status post left hip nailing Consult to Physical Therapy [CONS] Routine Comment: Evaluate, develop and implement POC Reason for Consult: Status post left hip nailing 04/16/17 14:45 Consult to [employer] [CONS] Routine Reason for SW Consult: Discharge planning - Constitutional Vitals: Temp Pulse Resp BP Pulse Ox 97.8 F 87 18 110/74 95 04/18/17 06:38 04/18/17 06:38 04/18/17 06:38 04/18/17 06:38 04/18/17 06:38 General appearance: Present: A&O X 3 - Head Head exam: Present: atraumatic, normocephalic - Eye Eye exam: Present: PERRL, conjuntiva pink, sclera anicteric Pupils: Present: PERRL - Neck Neck exam general surgery: Present: supple, trachea midline. Absent: lymphadenopathy - Respiratory Respiratory exam: Present: CTAB. Absent: accessory muscle use, rales, rhonchi, wheezes - Cardiovascular Cardiovascular exam: Present: RRR, +S1, +S2. Absent: diastolic murmur, gallop, rubs, systolic murmur - GI/Abdominal GI/Abdominal exam: Present: normal bowel sounds, soft, no peritoneal signs. Absent: distended, tenderness - Extremities Exam Extremities exam: Present: warm, radial pulses palpable and symmetrical. Absent : calf tenderness, cyanotic, pedal edema Additional comments: Left hip surgical wound without signs of hematoma or infection - Neurological Exam Neurological exam: Present: CN II-XII intact, oriented X3, no focal deficits. Absent: pronater drift, facial droop, speech deficit - Skin Skin exam: Present: dry, intact - Patient Status Disposition: Transfer SNF Condition: Fair Overall status at discharge: patient is progressing back to baseline - Discharge Instructions Follow Up With: Giorgio Landis MD [Primary Care Provider] - Additional Instructions: Continue omeprazole, iron tablets twice a day, pain control. Increase dose of aspirin up to 325 mg twice a day for a total of 28 days after surgery. Orthopedic surgery. [facility] DISCHARGE INSTRUCTIONS Dr. Cullen PROCEDURE PERFORMED Reduction and fixation of left hip. Incision care -Keep clear dressing in place. If dressing becomes saturated, may perform daily dressing changes to the left hip with dry gauze and either paper tape or medipore tape. -Avoid soaking wound in water (no hot tubs, bathtubs, swimming pools). -May shower after 2 weeks from surgery date. Carefully wash incision with soap and water. Gently pat it dry. Don't rub the incision, or apply creams or lotions. Sit on a shower stool when showering to keep from falling. Weight bearing status -Weightbearing as tolerated to the bilateral lower extremities. Medications -Pain medication per the discharging medical doctor -Enteric coated aspirin 325 mg by mouth twice per day for 28 days from the date of the surgery. [-Resume 50,000 units of vitamin D2 weekly and 1200 mg of calcium supplementation per day.] Other -Knee high EMMA hose 23 hours per day -Consult physical and occupational therapy for mobilization. -Up to chair with assistance at least twice per day. -Follow up with your primary care physician to discuss testing for bone mineral density. Follow-Up -Follow-up with Dr. Cullen in office in 2 weeks from the surgery date for a post-operative evaluation. -Call the office at [phone] to schedule or confirm your appointment. -Follow up with your primary care physician to discuss testing for bone mineral density. - Diet and Activity Activity: as per physical therapy Diet: low fat, low cholesterol - VTE Documentation of Mechanical Device: Intermittent pneumatic compression device
--- NOTE | 2017-04-18 08:16 | Physician Discharge Referral ---
ExtendedCare Referral Info Provider in Charge after Transfer: PCP Institutional Level of Care: Skilled - Diagnosis (1) Intertrochanteric fracture of left hip Status: Acute (2) Acute blood loss as cause of postoperative anemia Status: Acute (3) Accelerated hypertension Status: Acute (4) Chronic kidney disease, stage III (moderate) Status: Acute (5) Rheumatoid arthritis Status: Acute (6) Pancytopenia Status: Acute (7) CAD (coronary artery disease) Status: Acute - Transfer Medications Prescriptions: HYDROcodone/Acet 5/325 mg [[place] 5-325 mg] 1 tab PO Q6HR PRN 7 Days #28 tablet PRN Reason: Moderate Pain Ferrous Sulfate [Iron] 325 mg PO BID #60 capsule.er Omeprazole [PriLOSEC] 40 mg PO DAILY@0630 #30 capsule. Home Medications: Aspirin [Lo-Dose Aspirin EC] 81 mg PO DAILY 08/15/15 [History] Metoprolol XL (24 HR) Succ [Toprol Xl] 25 mg PO DAILY 08/15/15 [History] Simvastatin [Zocor] 40 mg PO HS 08/15/15 [History] Fluticasone/Salmeterol [Advair 100-50 Diskus] 1 puff IH BID PRN 02/05/16 [ History] Alendronate Sodium [Fosamax] 70 mg PO MO 03/18/16 [History] Cholecalciferol (Vitamin D3) [Vitamin D3] 50,000 unit PO QWEEK 03/18/16 [History ] Methotrexate [Otrexup] 7.5 mg PO MO 03/18/16 [History] Albuterol Sulfate [Albuterol Inhaler] 2 puff IH Q4H PRN 04/15/17 [History] LevETIRAcetam [Keppra] 500 mg PO BID 04/15/17 [History] Lisinopril/Hydrochlorothiazide [Zestoretic 10-12.5 mg Tablet] 1 each PO DAILY [History] Ferrous Sulfate [Iron] 325 mg PO BID #60 capsule.er 04/18/17 [Rx] HYDROcodone/Acet 5/325 mg [[place] 5-325 mg] 1 tab PO Q6HR PRN 7 Days #28 tablet 04/18/17 [Rx] Omeprazole [PriLOSEC] 40 mg PO DAILY@0630 #30 capsule. 04/18/17 [Rx] Allergies/Adverse Reactions: 3 Allergy/AdvReac Type Severity Reaction Status Date / Time Iodinated Contrast- Oral and Allergy Hives Verified 03/18/16 11:41 IV Dye - Respiratory Orders Smoking Cessation: Smoking cessation has been advised. For more information, call the [place] Tobacco Quit Line at 0-628-CYKJ-NOW. - Advance Directives Code Status: Full Code - Diet Orders No Added Salt (WILMAN) House Supplement per Dietary: Continue omeprazole, iron tablets twice a day, pain control. Increase dose of aspirin up to 325 mg twice a day for a total of 28 days after surgery. Orthopedic surgery. LONG-TERM DISCHARGE INSTRUCTIONS Dr. Cullen PROCEDURE PERFORMED Reduction and fixation of left hip. Incision care -Keep clear dressing in place. If dressing becomes saturated, may perform daily dressing changes to the left hip with dry gauze and either paper tape or medipore tape. -Avoid soaking wound in water (no hot tubs, bathtubs, swimming pools). -May shower after 2 weeks from surgery date. Carefully wash incision with soap and water. Gently pat it dry. Don't rub the incision, or apply creams or lotions. Sit on a shower stool when showering to keep from falling. Weight bearing status -Weightbearing as tolerated to the bilateral lower extremities. Medications -Pain medication per the discharging medical doctor -Enteric coated aspirin 325 mg by mouth twice per day for 28 days from the date of the surgery. [-Resume 50,000 units of vitamin D2 weekly and 1200 mg of calcium supplementation per day.] Other -Knee high EMMA hose 23 hours per day -Consult physical and occupational therapy for mobilization. -Up to chair with assistance at least twice per day. -Follow up with your primary care physician to discuss testing for bone mineral density. Follow-Up -Follow-up with Dr. Cullen in office in 2 weeks from the surgery date for a post-operative evaluation. -Call the office at [phone] to schedule or confirm your appointment. -Follow up with your primary care physician to discuss testing for bone mineral density. CERTIFICATION: I certify that the transfer of the above named patient to an Extended Care Facility is necessary for the continuing treatment of the diagnosis listed. The above information is true and accurate reflection of patient's current condition. Confidential - Redisclosure prohibited without a patient's written consent.
[2017-04-18] MEDS: levETIRAcetam 250 MG TABLET PO SCH ×2 (08:43→20:12)
[2017-04-18] MEDS: *HR* OxyCODONE Immed Rel 5 MG TABLET PO PRN (08:43)
[2017-04-18] MEDS: Metoprolol XL (24 HR) Succ 25 MG TAB.ER.24H PO SCH (08:43)
[2017-04-18] MEDS: Aspirin Enteric Coated 81 MG Tablet PO SCH (08:43)
[2017-04-18 09:21] LABS: Hemoglobin 8.6 g/dL (11.5-15.4)
[2017-04-18 09:22] LABS: Hematocrit 26.8 % (35.3-44.9); Immature Platelets 6.1 % (1.1-6.1); Mean Corpuscular HGB Conc 32.1 g/dL (31.6-35.5); Mean Corpuscular Hemoglobin 29.2 pg (28.0-33.3); Mean Corpuscular Volume 90.8 fL (83.0-100.0); Red Blood Count 2.95 M/mcL (3.82-4.97); Red Cell Distribution Width 17.5 % (11.5-14.5)
[2017-04-18 09:23] LABS: Platelet Count 70 K/mcL (140-400)
[2017-04-19] MEDS: *HR* HYDROcodone/Acet 5/325 mg TABLET PO PRN ×3 (03:46→21:31)
[2017-04-19] MEDS: *HR* Heparin 5,000 UNIT/ML VIAL SQ SCH (05:31)
[2017-04-19 06:40] LABS: Hemoglobin 7.7 g/dL (11.5-15.4); Mean Corpuscular HGB Conc 32.1 g/dL (31.6-35.5); Mean Corpuscular Hemoglobin 29.2 pg (28.0-33.3); Mean Corpuscular Volume 90.9 fL (83.0-100.0); Platelet Count 76 K/mcL (140-400); Red Blood Count 2.64 M/mcL (3.82-4.97); Red Cell Distribution Width 17.3 % (11.5-14.5)
[2017-04-19] MEDS: Aspirin Enteric Coated 81 MG Tablet PO SCH (09:00)
[2017-04-19] MEDS: levETIRAcetam 250 MG TABLET PO SCH ×2 (09:00→21:31)
[2017-04-19] MEDS: Metoprolol XL (24 HR) Succ 25 MG TAB.ER.24H PO SCH (09:01)
--- NOTE | 2017-04-19 13:17 | Internal Med Progress Note ---
Date of Encounter: 04/19/17 Time of Encounter: 13:14 - Assessment and plan (1) Intertrochanteric fracture of left hip Current Visit: Yes Status: Acute Assessment and plan: Left intertrochanteric fracture after a fall s/p ORIF No complications except for acute blood lows anemia after surgery We will be able to be discharged once blood counts are more stable Qualifiers: Encounter type: subsequent encounter Fracture type: closed Fracture alignment: displaced Fracture healing: with routine healing Qualified Code(s ): S72.142D - Displaced intertrochanteric fracture of left femur, subsequent encounter for closed fracture with routine healing (2) Acute blood loss as cause of postoperative anemia Current Visit: Yes Status: Acute Assessment and plan: Acute blood lows anemia likely secondary to surgical procedure Send Hemoccult Has received 2 units of red blood cells are ready. Order 1 unit of blood, monitor CBC for father transfusions Hold heparin (3) Accelerated hypertension Current Visit: Yes Status: Acute Assessment and plan: Stable (4) CAD (coronary artery disease) Current Visit: Yes Status: Acute Assessment and plan: Stable on metoprolol Qualifiers: Coronary Disease-Associated Artery/Lesion type: [place] artery [place] vs. transplanted heart: [place] heart Associated angina: without angina Qualified Code(s): I25.10 - Atherosclerotic heart disease of [place] coronary artery without angina pectoris (5) Chronic kidney disease, stage III (moderate) Current Visit: Yes Status: Acute Assessment and plan: Stable (6) Pancytopenia Current Visit: Yes Status: Acute Assessment and plan: Follow up as outpatient (7) Rheumatoid arthritis Current Visit: Yes Status: Acute Qualifiers: Rheumatoid arthritis location: unspecified site Rheumatoid factor presence : with rheumatoid factor Qualified Code(s): M05.9 - Rheumatoid arthritis with rheumatoid factor, unspecified - Subjective Interval history: no feeling as weak, denies any chest pain or shortness of breath, no fevers, no abdominal pain or dysuria - Constitutional Vitals: Temp Pulse Resp BP Pulse Ox 98.7 F 77 18 153/76 99 04/19/17 11:34 04/19/17 11:34 04/19/17 11:34 04/19/17 11:34 04/19/17 11:34 General appearance: Present: A&O X 3 Exam: - Head Head exam: Present: atraumatic, normocephalic - Eye Eye exam: Present: PERRL, conjuntiva pink, sclera anicteric Pupils: Present: PERRL - Neck Neck exam general surgery: Present: supple, trachea midline. Absent: lymphadenopathy - Respiratory Respiratory exam: Present: CTAB. Absent: accessory muscle use, rales, rhonchi, wheezes - Cardiovascular Cardiovascular exam: Present: RRR, +S1, +S2. Absent: diastolic murmur, gallop, rubs, systolic murmur - GI/Abdominal GI/Abdominal exam: Present: normal bowel sounds, soft, no peritoneal signs. Absent: distended, tenderness - Extremities Exam Extremities exam: Present: warm, radial pulses palpable and symmetrical. Absent : calf tenderness, cyanotic, pedal edema Additional comments: Left hip surgical wound without signs of hematoma or infection - Neurological Exam Neurological exam: Present: CN II-XII intact, oriented X3, no focal deficits. Absent: pronater drift, facial droop, speech deficit - Skin Skin exam: Present: dry, intact Internal Medicine: Result - Labs CBC & Chem 7: 04/19/17 06:03 04/17/17 03:14 Labs: Short CBC 04/19/17 Range/Units 06:03 WBC 8.5 (4.3-11.1) K/mcL Hgb 7.7 L (11.5-15.4) g/dL Hct 24.0 L (35.3-44.9) % Plt Count 76 L (140-400) K/mcL - ABG Interpretation ABG results: PT/INR, D-dimer PT 16.0 Seconds (9.4-12.1) H 04/16/17 01:34 - Impressions Impressions Hip X-Ray 04/16/17 13:32 IMPRESSION: Intraprocedural fluoroscopic spot images as above. See separate procedure report for more information. D/ / 04/17/2017 08:33:51 Marycarmen Bradford MD / cori Interpreting Provider: Marycarmen Bradford MD - VTE Documentation of Mechanical Device: Intermittent pneumatic compression device Consult Discharge Plan - Plan Additional Instructions: Continue omeprazole, iron tablets twice a day, pain control. Increase dose of aspirin up to 325 mg twice a day for a total of 28 days after surgery. Orthopedic surgery. [facility] DISCHARGE INSTRUCTIONS Dr. Cullen PROCEDURE PERFORMED Reduction and fixation of left hip. Incision care -Keep clear dressing in place. If dressing becomes saturated, may perform daily dressing changes to the left hip with dry gauze and either paper tape or medipore tape. -Avoid soaking wound in water (no hot tubs, bathtubs, swimming pools). -May shower after 2 weeks from surgery date. Carefully wash incision with soap and water. Gently pat it dry. Don't rub the incision, or apply creams or lotions. Sit on a shower stool when showering to keep from falling. Weight bearing status -Weightbearing as tolerated to the bilateral lower extremities. Medications -Pain medication per the discharging medical doctor -Enteric coated aspirin 325 mg by mouth twice per day for 28 days from the date of the surgery. [-Resume 50,000 units of vitamin D2 weekly and 1200 mg of calcium supplementation per day.] Other -Knee high EMMA hose 23 hours per day -Consult physical and occupational therapy for mobilization. -Up to chair with assistance at least twice per day. -Follow up with your primary care physician to discuss testing for bone mineral density. Follow-Up -Follow-up with Dr. Cullen in office in 2 weeks from the surgery date for a post-operative evaluation. -Call the office at [phone] to schedule or confirm your appointment. -Follow up with your primary care physician to discuss testing for bone mineral density. Referrals: Giorgio Landis MD [Primary Care Provider] - Prescriptions: HYDROcodone/Acet 5/325 mg [[place] 5-325 mg] 1 tab PO Q6HR PRN 7 Days #28 tablet PRN Reason: Moderate Pain Ferrous Sulfate [Iron] 325 mg PO BID #60 capsule.er Omeprazole [PriLOSEC] 40 mg PO DAILY@0630 #30 capsule.
[2017-04-19] MEDS ORDERED: 0.9 % Sodium Chloride 250 ML ONE (14:32)
[2017-04-19] MEDS: *HR* OxyCODONE Immed Rel 5 MG TABLET PO PRN (16:02)
[2017-04-20] MEDS: *HR* HYDROcodone/Acet 5/325 mg TABLET PO PRN ×2 (05:32→09:24)
[2017-04-20 06:02] LABS: Hematocrit 30.2 % (35.3-44.9); Hemoglobin 9.7 g/dL (11.5-15.4); Mean Corpuscular HGB Conc 32.1 g/dL (31.6-35.5); Mean Corpuscular Hemoglobin 28.8 pg (28.0-33.3); Mean Corpuscular Volume 89.6 fL (83.0-100.0); Red Blood Count 3.37 M/mcL (3.82-4.97); Red Cell Distribution Width 16.9 % (11.5-14.5)
[2017-04-20 06:04] LABS: Platelet Count 95 K/mcL (140-400)
[2017-04-20 06:23] LABS: BUN/Creatinine Ratio 29 (6-26); Blood Urea Nitrogen 22 mg/dL (8-23); Calcium 8.8 mg/dL (8.6-10.3); Carbon Dioxide 25 mEq/L (23-29); Chloride 111 mEq/L (98-107); Glucose 100 mg/dL (70-105); Osmolality,Calculated 283 (280-300); Potassium 3.5 mEq/L (3.5-5.1); Sodium 135 mEq/L (136-145); eGFR For African Americans > 60 (> 60); eGFR For Non-African Americans > 60 (> 60)
[2017-04-20 07:12] VITALS: BP 134/78
[2017-04-20] MEDS: Aspirin Enteric Coated 81 MG Tablet PO SCH (07:45)
[2017-04-20] MEDS: levETIRAcetam 250 MG TABLET PO SCH (07:45)
[2017-04-20] MEDS: Metoprolol XL (24 HR) Succ 25 MG TAB.ER.24H PO SCH (07:45)
--- NOTE | 2017-04-20 11:55 | Internal Med Progress Note ---
Date of Encounter: 04/20/17 Time of Encounter: 11:52 - Assessment and plan (1) Intertrochanteric fracture of left hip Current Visit: Yes Status: Acute Assessment and plan: Left intertrochanteric fracture after a fall s/p ORIF No complications except for acute blood lows anemia after surgery Stable to be discharged Qualifiers: Encounter type: subsequent encounter Fracture type: closed Fracture alignment: displaced Fracture healing: with routine healing Qualified Code(s ): S72.142D - Displaced intertrochanteric fracture of left femur, subsequent encounter for closed fracture with routine healing (2) Acute blood loss as cause of postoperative anemia Current Visit: Yes Status: Acute Assessment and plan: Acute blood lows anemia likely secondary to surgical procedure no BMs Has received 3 units of red blood cells Hb 9.7 today (3) Accelerated hypertension Current Visit: Yes Status: Acute Assessment and plan: Stable (4) CAD (coronary artery disease) Current Visit: Yes Status: Acute Assessment and plan: Stable on metoprolol Qualifiers: Coronary Disease-Associated Artery/Lesion type: [place] artery [place] vs. transplanted heart: [place] heart Associated angina: without angina Qualified Code(s): I25.10 - Atherosclerotic heart disease of [place] coronary artery without angina pectoris (5) Chronic kidney disease, stage III (moderate) Current Visit: Yes Status: Acute Assessment and plan: Stable (6) Pancytopenia Current Visit: Yes Status: Acute Assessment and plan: Follow up as outpatient (7) Rheumatoid arthritis Current Visit: Yes Status: Acute Qualifiers: Rheumatoid arthritis location: unspecified site Rheumatoid factor presence : with rheumatoid factor Qualified Code(s): M05.9 - Rheumatoid arthritis with rheumatoid factor, unspecified - Subjective Interval history: Feeling better, no signs of hemorrhagia , denies any chest pain or shortness of breath, no fevers, no abdominal pain or dysuria - Constitutional Vitals: Temp Pulse Resp BP Pulse Ox 98.8 F 93 16 134/78 98 04/20/17 06:44 04/20/17 06:44 04/20/17 06:44 04/20/17 06:44 04/20/17 06:44 General appearance: Present: A&O X 3 Exam: - Head Head exam: Present: atraumatic, normocephalic - Eye Eye exam: Present: PERRL, conjuntiva pink, sclera anicteric Pupils: Present: PERRL - Neck Neck exam general surgery: Present: supple, trachea midline. Absent: lymphadenopathy - Respiratory Respiratory exam: Present: CTAB. Absent: accessory muscle use, rales, rhonchi, wheezes - Cardiovascular Cardiovascular exam: Present: RRR, +S1, +S2. Absent: diastolic murmur, gallop, rubs, systolic murmur - GI/Abdominal GI/Abdominal exam: Present: normal bowel sounds, soft, no peritoneal signs. Absent: distended, tenderness - Extremities Exam Extremities exam: Present: warm, radial pulses palpable and symmetrical. Absent : calf tenderness, cyanotic, pedal edema Additional comments: Left hip surgical wound without signs of hematoma or infection - Neurological Exam Neurological exam: Present: CN II-XII intact, oriented X3, no focal deficits. Absent: pronater drift, facial droop, speech deficit - Skin Skin exam: Present: dry, intact Internal Medicine: Result - Labs CBC & Chem 7: 04/20/17 05:03 04/20/17 05:03 Labs: Short CBC 04/19/17 04/20/17 Range/Units 20:40 05:03 WBC 6.2 (4.3-11.1) K/mcL Hgb 10.0 L D 9.7 L (11.5-15.4) g/dL Hct 32.0 L 30.2 L (35.3-44.9) % Plt Count 95 L (140-400) K/mcL BMP 04/20/17 05:03 Sodium 135 L Potassium 3.5 Chloride 111 H Carbon Dioxide 25 BUN 22 Creatinine 0.76 Glucose 100 Calcium 8.8 - ABG Interpretation ABG results: PT/INR, D-dimer PT 16.0 Seconds (9.4-12.1) H 04/16/17 01:34 - VTE Documentation of Mechanical Device: Intermittent pneumatic compression device Consult Discharge Plan - Plan Additional Instructions: Continue omeprazole, iron tablets twice a day, pain control. Increase dose of aspirin up to 325 mg twice a day for a total of 28 days after surgery. Orthopedic surgery. RESIDENTIAL DISCHARGE INSTRUCTIONS Dr. Subhash LANCASTER PERFORMED Reduction and fixation of left hip. Incision care -Keep clear dressing in place. If dressing becomes saturated, may perform daily dressing changes to the left hip with dry gauze and either paper tape or medipore tape. -Avoid soaking wound in water (no hot tubs, bathtubs, swimming pools). -May shower after 2 weeks from surgery date. Carefully wash incision with soap and water. Gently pat it dry. Don't rub the incision, or apply creams or lotions. Sit on a shower stool when showering to keep from falling. Weight bearing status -Weightbearing as tolerated to the bilateral lower extremities. Medications -Pain medication per the discharging medical doctor -Enteric coated aspirin 325 mg by mouth twice per day for 28 days from the date of the surgery. [-Resume 50,000 units of vitamin D2 weekly and 1200 mg of calcium supplementation per day.] Other -Knee high EMMA hose 23 hours per day -Consult physical and occupational therapy for mobilization. -Up to chair with assistance at least twice per day. -Follow up with your primary care physician to discuss testing for bone mineral density. Follow-Up -Follow-up with Dr. Cullen in office in 2 weeks from the surgery date for a post-operative evaluation. -Call the office at [phone] to schedule or confirm your appointment. -Follow up with your primary care physician to discuss testing for bone mineral density. Referrals: Giorgio Landis MD [Primary Care Provider] - Prescriptions: HYDROcodone/Acet 5/325 mg [[address] 5-325 mg] 1 tab PO Q6HR PRN 7 Days #28 tablet PRN Reason: Moderate Pain Ferrous Sulfate [Iron] 325 mg PO BID #60 capsule.er Omeprazole [PriLOSEC] 40 mg PO DAILY@0630 #30 capsule.
== END 2017-04-20 12:28 | DRG 481 ==
LOC: 3NENU 16:23 → EMEROO 16:23 → 3NENU 19:19
PROVIDERS: ADMIT Internal Medicine; ATTEND Internal Medicine

== ENCOUNTER 2018-06-09 18:07 | Inpatient (IN) ==
[2018-06-10] MEDS ORDERED: Naloxone 0.4 MG/ML INJ IVP PRN (04:05)
[2018-06-10] MEDS ORDERED: Ondansetron 4 MG/2 ML VIAL IVP PRN (04:05)
[2018-06-10] MEDS ORDERED: *HR* LORazepam 2 MG/ML VIAL IVP PRN (04:05)
[2018-06-10] MEDS ORDERED: traMADol 50 MG TABLET PO PRN (04:05)
--- NOTE | 2018-06-10 05:10 | Internal Med History&Physical ---
Date of Encounter: 06/10/18 Time of Encounter: 02:45 Internal Medicine - H&P: HPI Chief complaint: jaundice, abdominal distension Admitted From: Hospital to Hospital Transfer Plans for Post Hospital Care: Home History of present illness: Ms. Westfall is a 78 year old female who presents in transfer from [place] [facility] for concerns of abdominal bloating, pain, lower extremity edema, and new diagnosis of cirrhosis. Furthermore, she has evidence of jaundice both clinically and on laboratory analysis. Her PCP ordered some labs due to recent CT imaging of the abdomen suggesting cirrhosis. Her labs confirmed jaundice and abnormal liver studies. Because of abnormal labs and abdominal pain and bloating, she was sent to [facility] for further workup and care. Upon my assessment of the patient, she confirms the above history. Symptoms started about 2 weeks ago. She first noted abdominal bloating, distention, and symptoms of abdominal pain. She later developed lower extremity edema. She denies any shortness of breath, cough, chest pain, fevers, or chills. She denies any hemoptysis or wheezing. I reviewed her CT imaging from a few weeks ago and note that she also had pulmonary nodules. She is a nonsmoker. She does have a history of rheumatoid arthritis and has been on methotrexate for quite some time. 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 Regarding her cirrhosis, she denies any alcohol use or abuse. She denies any acetaminophen abuse. She denies any history of diabetes or fatty liver disease. She informed me that her PCP was concerned that the methotrexate may lead to liver toxicity from a 30 year history of using this medication for rheumatoid arthritis. She does complain of some mild abdominal pain and distention but she denies any epigastric pain. She was sent in from [place] for GI workup. Past Med Surg Social Fam HX - Past Medical History Attestation: Yes The following information was validated with the patient. Source: patient, old records reviewed Medical history: hyperlipidemia, hypertension, myocardial infarction, seizures Additional medical history: cardiac stents x 4 Psychiatric history: no psych history - Past Surgical History Surgical History: other Additional surgical history: ganglion cyst removed, left hip surgery - Social History Smoking Status: Never smoker Alcohol use: none Drug use: none Current living situation: Home, With Family Activity Level: Independent ambulation Recent Out of Country Travel Within the Last 8 Weeks: No - Family History Brother Hx Family Cardiac Disorders: Yes (heart attack) Hx Family Endocrine Disorder: Yes (Diabetes) Mother Living Status: Age at : 54 Hx Family Cancer: Yes Internal Medicine - H&P: Meds Aspirin [Lo-Dose Aspirin EC] 81 mg PO DAILY 08/15/15 [History] Metoprolol XL (24 HR) Succ [Toprol Xl] 25 mg PO DAILY 08/15/15 [History] Simvastatin [Zocor] 40 mg PO HS 08/15/15 [History] Fluticasone/Salmeterol [Advair 100-50 Diskus] 1 puff IH BID PRN 02/05/16 [History] Alendronate Sodium [Fosamax] 70 mg PO MO 03/18/16 [History] Cholecalciferol (Vitamin D3) [Vitamin D3] 50,000 unit PO QWEEK 03/18/16 [History] Methotrexate [Otrexup] 7.5 mg PO QWEEK 03/18/16 [History] Albuterol Sulfate [Albuterol Inhaler] 2 puff IH Q4H PRN 04/15/17 [History] LevETIRAcetam [Keppra] 500 mg PO BID 04/15/17 [History] Lisinopril/Hydrochlorothiazide [Zestoretic 10-12.5 mg Tablet] 1 each PO DAILY 04/15/17 [History] Omeprazole [PriLOSEC] 40 mg PO DAILY@0630 #30 capsule. 04/18/17 [Rx] Furosemide [Lasix] 20 mg PO DAILY 06/09/18 [History] Allergy/AdvReac Type Severity Reaction Status Date / Time Iodinated Contrast- Oral and Allergy Hives Verified 04/15/18 03:34 IV Dye - Constitutional Constitutional: fatigue, weight gain, no chills, no fever(s), no night sweats - EENT Eyes: no blurry vision, no change in vision Ears: no ear pain, no tinnitus Nose, mouth and throat: no nasal congestion, no sinus pressure, no sore throat - Cardiovascular Cardiovascular ROS IM: dyspnea on exertion, no chest pain, no dyspnea, no orthopnea, no paroxysmal nocturnal dyspnea, no syncope - Respiratory Respiratory: no cough, no hemoptysis, no chest congestion, no change in phlegm color, no pain with cough - Gastrointestinal Gastrointestinal: abdominal pain, bloating, early satiety, nausea, no diarrhea, no fecal incontinence, no hematemesis, no hematochezia, no melena, no vomiting - Genitourinary Genitourinary: no dysuria, no flank pain, no hematuria - Musculoskeletal Musculoskeletal ROS IM: no arthralgias, no back pain - Integumentary Integumentary IM: jaundice, no rash - Neurological Neurological ROS: no dizziness, no focal weakness, no frequent falls, no headache(s) - Psychiatric Psychiatric: no anxiety, no depression - Endocrine Endocrine IM: no polydipsia, no polyuria - Hematologic/Lymphatic Hematologic/Lymphatic: easy bruising - Allergic/Immunologic Allergic/Immunologic: no wheezing, no GI upset with certain foods - Constitutional Vitals: Temp Pulse Resp BP Pulse Ox 99.1 F 85 16 127/73 90 06/10/18 04:45 06/10/18 04:45 06/10/18 04:45 06/10/18 04:45 06/10/18 04:45 General appearance: Present: cooperative, A&O X 3, pleasant, no acute distress, answers questions appropriately Exam: mild jaundice in appearance - Head Head exam: Present: atraumatic, normal inspection - Eye Eye exam: Present: EOMI, PERRL, scleral icterus Pupils: Present: normal accommodation - ENT ENT exam: Present: mucous membranes dry, normal exam, normal oropharynx - Neck Neck exam general surgery: Present: full ROM, supple, trachea midline. Absent: tenderness, nuchal rigidity, thyromegaly - Respiratory Respiratory exam: Present: CTAB. Absent: chest wall tenderness, rales, rhonchi, wheezes - Cardiovascular Cardiovascular exam: Present: distant heart sounds, RRR, +S1, +S2. Absent: diastolic murmur, systolic murmur - GI/Abdominal GI/Abdominal exam: Present: distended, normal bowel sounds, tenderness (mild diffuse tenderness), no peritoneal signs. Absent: guarding, hepatomegaly, rebound, splenomegaly - Extremities Exam Extremities exam: Present: normal capillary refill, pedal edema (3+), warm, radial pulses palpable and symmetrical. Absent: calf tenderness, joint swelling, tenderness - Back Exam Back exam: Absent: CVA tenderness (L), CVA tenderness (R) - Neurological Exam Neurological exam: Present: alert, CN II-XII intact, oriented X3, no focal deficits - Psychiatric Psychiatric exam: Present: normal affect, normal mood - Skin Skin exam: Present: dry, intact, warm Internal Med - H&P Results - Labs Labs: I reviewed her labs a [place] and include the following: WBC 11.6 Hemoglobin 8.4 Hematocrit 27.8 Platelets 324 PT 14.8 INR 1.3 ETT 33.5 Sodium 138 Potassium 27 Chloride 102 Carbon dioxide 24 BUN 26 Creatinine 1.70 Total bilirubin 9.8 Troponin 5.3 AST 13 ALT 81 Alkaline phosphatase 353 - Assessment and Plan (1) Abdominal pain Current Visit: Yes Status: Acute Assessment and plan: 1. Some concern for SBP. 2. Will order blood cultures and consult IR for paracentesis. 3. Fluid studies ordered for analysis. 4. Will order IV antibiotics to cover GI osiris. Qualifiers: Abdominal location: generalized Qualified Code(s): R10.84 - Generalized abdominal pain (2) Pulmonary nodules/lesions, multiple Current Visit: Yes Status: Acute Assessment and plan: 1. Will order Chest CT to further evaluate. 2. Patient had known RA and nodules may be due ot RA lung disease. (3) Cirrhosis Current Visit: Yes Status: Acute Assessment and plan: 1. Will order MRI pancreas. 2. Will order Hepatitis serologies. 3. Consult GI for assistance n work-up. 4. Trend LFT's, bilirbin. Qualifiers: Hepatic cirrhosis type: unspecified hepatic cirrhosis Ascites presence: with ascites Qualified Code(s): K74.60 - Unspecified cirrhosis of liver; R18.8 - Other ascites (4) DVT prophylaxis Current Visit: Yes Status: Acute Assessment and plan: 1. Heparin SQ.
[2018-06-10] MEDS: *HR* Heparin 5,000 UNIT/ML VIAL SQ SCH ×2 (05:51→18:01)
[2018-06-10 05:56] LABS: Basophils % 0.1 %; Hematocrit 23.8 % (35.3-44.9); Immature Granulocytes % 0.7 % (0-4)
[2018-06-10 05:58] LABS: Eosinophils % 0.3 %; Hemoglobin 7.4 g/dL (11.5-15.4); Immature Platelets 3.9 % (1.1-6.1); Lymphocytes # 1.1 K/mcL (0.6-4.6); Lymphocytes % 9.1 %; Mean Corpuscular HGB Conc 31.1 g/dL (31.6-35.5); Mean Corpuscular Hemoglobin 26.4 pg (28.0-33.3); Monocytes # 0.9 K/mcL (0.0-1.3); Monocytes % 7.1 %; Neutrophils # 9.9 K/mcL (1.6-8.9); Platelet Count 199 K/mcL (140-400); Segmented Neutrophils % 82.7 %
[2018-06-10 06:08] LABS: INR 1.4; Prothrombin Time 15.7 Seconds (9.4-12.1)
[2018-06-10 06:11] LABS: Activated Partial Thrombo Time 30.2 Seconds (26.0-36.0)
[2018-06-10 06:18] LABS: Albumin 2.3 g/dL (3.5-5.7); Albumin/Globulin Ratio 0.5 (1.1-2.2); Bilirubin,Total 9.3 mg/dL (0.3-1.0); Globulin 4.5 g/dL (2.4-3.5); Phosphorous 2.5 mg/dL (2.7-4.5); Potassium 3.3 mEq/L (3.5-5.1); Total Protein 6.8 g/dL (6.4-8.9)
[2018-06-10 06:21] LABS: Anisocytosis 3+ (Not Present); Hypochromasia Present (Not Present); Microcytosis Present (Not Present); Poikilocytosis 2+ (Not Present)
[2018-06-10 06:22] LABS: Platelet Estimate Normal (Normal)
[2018-06-10 06:23] LABS: Ovalocytes 2+ (Not Present)
[2018-06-10 06:43] LABS: Hepatitis B Surface Antigen Nonreactive (Nonreactive)
[2018-06-10 07:12] LABS: Hepatitis B Core IgM Nonreactive (Nonreactive)
[2018-06-10 07:13] LABS: Hepatitis A Antibody IgM Nonreactive (Nonreactive); Hepatitis C Virus Antibody Nonreactive (Nonreactive)
--- NOTE | 2018-06-10 08:12 | Event Note ---
Date of Encounter: 06/10/18 Time of Encounter: 07:42 And examined this morning at bedside. No acute overnight events. Currently without abdominal pain. Mentioned she had twinges of some discomfort. Denies fever or chills, cp or sob General: In no acute distress. Respiratory exam: CTAB. no accessory muscle use, rales, rhonchi, wheezes Cardiovascular exam: RRR, +S1, +S2. no murmur, gallop, rubs. GI/Abdominal exam: Non-tender, distended with fluid thrill, normal bowel sounds, soft, no peritoneal signs. Extremities exam: 2+ pedal edema, no calf tenderness Neurological exam: CN II-XII intact, AO X3, no focal deficits. Skin exam: No skin rash Assesment Cirrhosis Portal HTN Anemia Pulmonary nodules CHUCHO DVT prophylaxis Plan - Continue empiric antibiotics for now. Low suspicion of SBP. - Will try to arrange for ascitic tap diagnostic and therapeutic. - f/u MRI pancreas and CT chest - f/u LFTs, hepatitis prof - CHUCHO improving. Will give albumin with tap. - Consult GI on tuesday. - Monitor Hb. Stable without acute bled
[2018-06-10] MEDS: MetroNIDAZOLE 500 MG/100 ML 500 MG/100 ML BAG IVPB SCH ×2 (08:52→15:13)
--- NOTE | 2018-06-10 11:40 | AcuteCare Surgery Consult Note ---
Date of Encounter: 06/10/18 Time of Encounter: 11:35 Assessment and Plan (1) Ascites Current Visit: Yes Status: Acute Recommend US guided paracentesis per IR. If IR is unavailable then ACS will proceed with procedure. Qualifiers: Qualified Code(s): R18.8 - Other ascites (2) Liver mass Current Visit: Yes Status: Acute CT suggests cirrhotic nodules vs mets vs primary HCC vs combo. (3) Abdominal pain Current Visit: Yes Status: Acute Will plan for paracentesis for therapeutic and diagnostic purpose. Qualifiers: Abdominal location: generalized Qualified Code(s): R10.84 - Generalized abdominal pain (4) Cirrhosis Current Visit: Yes Status: Acute Chronic but, only recently diagnosed. T bili 9. Paracentesis scheduled for today. Qualifiers: Hepatic cirrhosis type: unspecified hepatic cirrhosis Ascites presence: with ascites Qualified Code(s): K74.60 - Unspecified cirrhosis of liver; R18.8 - Other ascites (5) Cholelithiasis Current Visit: Yes Status: Acute Without acute cholecystitis per MRI abdomen. Qualifiers: Qualified Code(s): K80.20 - Calculus of gallbladder without cholecystitis without obstruction (6) Pulmonary nodules/lesions, multiple Current Visit: Yes Status: Acute Chronic, may be rhematoid. (7) CAD (coronary artery disease) Current Visit: No Status: Acute Chronic. Hx MA Qualifiers: Coronary Disease-Associated Artery/Lesion type: [place] artery [place] vs. transplanted heart: [place] heart Associated angina: without angina Qualified Code(s): I25.10 - Atherosclerotic heart disease of [place] coronary artery without angina pectoris (8) Chronic kidney disease, stage III (moderate) Current Visit: No Status: Acute Chronic, stable, primary service managing (9) Hx of myocardial infarction Current Visit: Yes Status: Acute History of Present Illness Consult date: 06/10/18 Reason for consult: abdominal pain Requesting physician: Abbey Rivera History of present illness: This 78 y/o female with multiple medical problems presents to [facility] with c/o abdominal pain. Pt describes pain as diffuse. She reports distension and vague nausea. Denies vomiting, hematemesis, hematochezia or melena. She reports jaundice. This along with abdominal pain is what prompted her PCP work-up diagnosing her cirrhosis. She denies SOB or CP. +hx MA. She reports BLE swelling. She denies fever. Past Med Surg Social Fam HX - Past Medical History Medical history: hyperlipidemia, hypertension, myocardial infarction, seizures Additional medical history: cardiac stents x 4 Psychiatric history: no psych history - Past Surgical History Surgical History: other Additional surgical history: ganglion cyst removed, left hip surgery - Social History Smoking Status: Never smoker Alcohol use: none Drug use: none - Family History Brother Hx Family Cardiac Disorders: Yes (heart attack) Hx Family Endocrine Disorder: Yes (Diabetes) Mother Living Status: Age at : 54 Hx Family Cancer: Yes Medications and Allergies Aspirin [Lo-Dose Aspirin EC] 81 mg PO DAILY 08/15/15 [History] Metoprolol XL (24 HR) Succ [Toprol Xl] 25 mg PO DAILY 08/15/15 [History] Simvastatin [Zocor] 40 mg PO HS 08/15/15 [History] Fluticasone/Salmeterol [Advair 100-50 Diskus] 1 puff IH BID PRN 02/05/16 [History] Alendronate Sodium [Fosamax] 70 mg PO QWEEK 03/18/16 [History] Cholecalciferol (Vitamin D3) [Vitamin D3] 50,000 unit PO QWEEK 03/18/16 [History] Methotrexate [Otrexup] 7.5 mg PO QWEEK 03/18/16 [History] Albuterol Sulfate [Albuterol Inhaler] 2 puff IH Q4H PRN 04/15/17 [History] LevETIRAcetam [Keppra] 500 mg PO BID 04/15/17 [History] Lisinopril/Hydrochlorothiazide [Zestoretic 10-12.5 mg Tablet] 1 each PO DAILY 04/15/17 [History] Omeprazole [PriLOSEC] 40 mg PO DAILY@0630 #30 capsule. 04/18/17 [Rx] Furosemide [Lasix] 20 mg PO DAILY 06/09/18 [History] Allergy/AdvReac Type Severity Reaction Status Date / Time Iodinated Contrast- Oral and Allergy Hives Verified 04/15/18 03:34 IV Dye Review of Systems All systems PM: The remainder of the systems were reviewed and are negative - Constitutional as per HPI, anorexia, fatigue, weight gain, no chills, no daytime sleepiness, no fever(s), no night sweats - EENT Nose, mouth and throat: dry mouth, no dysphagia, no nasal congestion, no nasal discharge, no sinus pain, no sinus pressure, no sore throat - Cardiovascular edema, no chest pain, no dyspnea, no dyspnea on exertion - Respiratory no cough, no dyspnea, no wheezing - Gastrointestinal abdominal pain, bloating, nausea, no belching, no constipation, no diarrhea, no hematemesis, no hematochezia, no melena, no vomiting - Genitourinary Genitourinary: no difficulty voiding, no dysuria, no urinary frequency - Musculoskeletal back pain, joint swelling, limited range of motion, no neck pain - Integumentary dry skin, jaundice, no pruritus, no rash, no wounds - Neurological no dizziness, no focal weakness, no weakness - Psychiatric no anxiety, no depression - Hematologic/Lymphatic no easy bleeding, no easy bruising General Surgery Exam Initial Vital Signs Temp Pulse Resp BP Pulse Ox 98.1 F 83 15 133/75 93 06/09/18 23:12 06/09/18 23:12 06/09/18 23:12 06/09/18 23:12 06/09/18 23:12 - General physical appearance no distress, no pain, moderate pain, jaundice - Eyes PERRL, normal ocular movement, icteric - ENT no congestion, dry mucosa. negative: nasal discharge - Neck no masses, no lymphadectomy, no venous distension - Respiratory normal respiratory effort, clear to auscultation - Cardiovascular Cardiovascular exam: Present: RRR. Absent: murmurs - Abdomen Abdomen general surgery: Present: bowel sounds present, tympanic (+fluid wave), distended, tender. Absent: guarding, rebound - Genitourinary Present: normal external genitalia - Integumentary Integumentary general surgery: Present: warm and dry, other (jaundice) - Neurologic Present: CN 2-12 grossly intact, normal coordination - Musculoskeletal Present: normal posture - Psychiatric Psychiatric general surgery: Present: A&Ox3, appropriate Exam Initial Vital Signs Temp Pulse Resp BP Pulse Ox 98.1 F 83 15 133/75 93 06/09/18 23:12 06/09/18 23:12 06/09/18 23:12 06/09/18 23:12 06/09/18 23:12 Results - Labs 06/10/18 05:44 06/10/18 05:44 Abnormal lab results WBC 12.0 K/mcL (4.3-11.1) H 06/10/18 05:44 RBC 2.80 M/mcL (3.82-4.97) L 06/10/18 05:44 Hgb 7.4 g/dL (11.5-15.4) L 06/10/18 05:44 Hct 23.8 % (35.3-44.9) L 06/10/18 05:44 MCH 26.4 pg (28.0-33.3) L 06/10/18 05:44 MCHC 31.1 g/dL (31.6-35.5) L 06/10/18 05:44 9.9 K/mcL (1.6-8.9) H 06/10/18 05:44 Present (Not Present) A 06/10/18 05:44 2+ (Not Present) A 06/10/18 05:44 3+ (Not Present) A 06/10/18 05:44 Present (Not Present) A 06/10/18 05:44 2+ (Not Present) A 06/10/18 05:44 PT 15.7 Seconds (9.4-12.1) H 06/10/18 05:44 Potassium 3.3 mEq/L (3.5-5.1) L 06/10/18 05:44 BUN 26 mg/dL (8-23) H 06/10/18 05:44 1.52 mg/dL (0.60-1.20) H 06/10/18 05:44 Est GFR ( Amer) 40 (> 60) L 06/10/18 05:44 Est GFR (Non-Af Amer) 33 (> 60) L 06/10/18 05:44 Calcium 8.0 mg/dL (8.6-10.3) L 06/10/18 05:44 Phosphorus 2.5 mg/dL (2.7-4.5) L 06/10/18 05:44 9.3 mg/dL (0.3-1.0) H 06/10/18 05:44 AST 245 Units/L (13-39) H 06/10/18 05:44 ALT 65 Units/L (7-52) H 06/10/18 05:44 287 Units/L (34-104) H 06/10/18 05:44 2.3 g/dL (3.5-5.7) L 06/10/18 05:44 4.5 g/dL (2.4-3.5) H 06/10/18 05:44 0.5 (1.1-2.2) L 06/10/18 05:44 Diabetes panel 06/10/18 Range/Units 05:44 Sodium 139 (136-145) mEq/L Potassium 3.3 L (3.5-5.1) mEq/L Chloride 105 (98-107) mEq/L Carbon Dioxide 24 (23-29) mEq/L BUN 26 H (8-23) mg/dL Creatinine 1.52 H (0.60-1.20) mg/dL Glucose 94 (70-105) mg/dL Calcium 8.0 L (8.6-10.3) mg/dL AST 245 H (13-39) Units/L ALT 65 H (7-52) Units/L Alkaline Phosphatase 287 H (34-104) Units/L Albumin 2.3 L (3.5-5.7) g/dL Calcium panel 06/10/18 Range/Units 05:44 Calcium 8.0 L (8.6-10.3) mg/dL Phosphorus 2.5 L (2.7-4.5) mg/dL Albumin 2.3 L (3.5-5.7) g/dL Pituitary panel 06/10/18 Range/Units 05:44 Sodium 139 (136-145) mEq/L Potassium 3.3 L (3.5-5.1) mEq/L Chloride 105 (98-107) mEq/L Carbon Dioxide 24 (23-29) mEq/L BUN 26 H (8-23) mg/dL Creatinine 1.52 H (0.60-1.20) mg/dL Glucose 94 (70-105) mg/dL Calcium 8.0 L (8.6-10.3) mg/dL Adrenal panel 06/10/18 Range/Units 05:44 Sodium 139 (136-145) mEq/L Potassium 3.3 L (3.5-5.1) mEq/L Chloride 105 (98-107) mEq/L Carbon Dioxide 24 (23-29) mEq/L BUN 26 H (8-23) mg/dL Creatinine 1.52 H (0.60-1.20) mg/dL Glucose 94 (70-105) mg/dL Calcium 8.0 L (8.6-10.3) mg/dL Total Bilirubin 9.3 H (0.3-1.0) mg/dL AST 245 H (13-39) Units/L ALT 65 H (7-52) Units/L Alkaline Phosphatase 287 H (34-104) Units/L Albumin 2.3 L (3.5-5.7) g/dL All other labs normal. - Imaging Additional studies: ABD MRI reveals ascites, multiple liver masses, cholelithiasis Consult Discharge Plan - Plan Referrals: NONE,PCP [Primary Care Provider] -
--- NOTE | 2018-06-10 13:20 | IR Procedure Note ---
Date of procedure: 06/10/18 Consent Obtained: Written consent Timeout: Correct patient and procedure verified, Correct site verified, Time out performed, Skin prep completed Indications: ascites Procedure Performed: paracentesis Was there an engineering inspection assistant present: No Site/Technique: left abdomen Results/Findings: 4.8 L straw color fluid Estimated blood loss (cc): 0 Complications: None; Tolerated procedure well Post Procedure Treatment Plan: no change Specimen: sample sent
[2018-06-10 15:38] LABS: RBC,Peritoneal Fluid < 0.002 M/mcL
[2018-06-10 15:39] LABS: Appearance of Peritoneal Fl CLEAR (Clear)
[2018-06-10 15:52] LABS: Amylase,Peritoneal Fluid 15 Units/L (No Ref Range); Glucose,Peritoneal Fluid 121 mg/dL (No Ref Range); LDH,Peritoneal Fluid 92 Units/L (No Ref Range); Total Protein,Peritoneal Fluid < 3.0 g/dL
[2018-06-10] MEDS: Albumin 25% 25gram/100mL 25 GM/100 ML IV.SOLN IVPB SCH (16:17)
[2018-06-11] MEDS: Albumin 25% 25gram/100mL 25 GM/100 ML IV.SOLN IVPB SCH ×4 (00:20→23:53)
[2018-06-11] MEDS: MetroNIDAZOLE 500 MG/100 ML 500 MG/100 ML BAG IVPB SCH (00:21)
[2018-06-11 04:44] LABS: Immature Platelets 4.2 % (1.1-6.1)
[2018-06-11 04:47] LABS: Basophils % 0.2 %; Monocytes % 7.5 %
[2018-06-11 04:51] LABS: Eosinophils # 0.1 K/mcL (0.0-0.6); Eosinophils % 0.6 %; Hematocrit 21.3 % (35.3-44.9); Hemoglobin 6.6 g/dL (11.5-15.4); Immature Granulocytes % 0.7 % (0-4); Lymphocytes % 9.5 %; Mean Corpuscular Hemoglobin 26.4 pg (28.0-33.3); Mean Corpuscular Volume 85.2 fL (83.0-100.0); Monocytes # 0.8 K/mcL (0.0-1.3); Nucleated Red Blood Cells 0.2 /100 WBC (0); Platelet Count 235 K/mcL (140-400); Segmented Neutrophils % 81.5 %
[2018-06-11 04:53] LABS: Calcium 8.2 mg/dL (8.6-10.3); Potassium 3.4 mEq/L (3.5-5.1)
[2018-06-11 05:20] LABS: Anisocytosis 3+ (Not Present); Neutrophils # 8.2 K/mcL (1.6-8.9); Platelet Estimate Normal (Normal)
[2018-06-11 05:21] LABS: Hypochromasia Present (Not Present); Macrocytosis Present (Not Present); Microcytosis Present (Not Present); Poikilocytosis 3+ (Not Present)
[2018-06-11 05:22] LABS: Schistocytes 3+ (Not Present)
[2018-06-11 05:23] LABS: Ovalocytes 2+ (Not Present)
[2018-06-11] MEDS: *HR* Heparin 5,000 UNIT/ML VIAL SQ SCH (05:57)
[2018-06-11 07:22] LABS: Albumin 2.8 g/dL (3.5-5.7); Albumin/Globulin Ratio 0.8 (1.1-2.2); Bilirubin,Direct 4.9 mg/dL (0.0-0.2); Bilirubin,Indirect 5.3 mg/dL (0.0-1.2); Bilirubin,Total 10.2 mg/dL (0.3-1.0); Globulin 3.5 g/dL (2.4-3.5); Total Protein 6.3 g/dL (6.4-8.9)
[2018-06-11] MEDS ORDERED: 0.9 % Sodium Chloride 250 ML ONE (09:50)
--- NOTE | 2018-06-11 10:15 | Internal Med Progress Note ---
Hospitalist Progress Note - Encounter Date of Encounter: 06/11/18 Time of Encounter: 10:15 - Subjective Interval History: His incision and examined this morning at bedside. No acute overnight events. Denies any abdominal pain and fever nausea vomiting or diarrhea. Denies any chest pain or difficulty breathing. - Exam Vitals: Temp Pulse Resp BP Pulse Ox 97.9 F 82 15 110/57 91 06/11/18 06:56 06/11/18 06:56 06/11/18 06:56 06/11/18 06:56 06/11/18 06:56 Exam: General: In no acute distress. Respiratory exam: CTAB. no accessory muscle use, rales, rhonchi, wheezes Cardiovascular exam: RRR, +S1, +S2. no murmur, gallop, rubs. GI/Abdominal exam: Non-tender, non distended, normal bowel sounds, soft, no peritoneal signs. Extremities exam: 2+ pedal edema, no calf tenderness Neurological exam: CN II-XII intact, AO X3, no focal deficits. Skin exam: No skin rash - Assessment and Plan (1) Cirrhosis Current Visit: Yes Status: Acute (2) Abdominal pain Current Visit: Yes Status: Acute (3) Pulmonary nodules/lesions, multiple Current Visit: Yes Status: Acute (4) DVT prophylaxis Current Visit: Yes Status: Acute - Summary of Assessment and Plan Summary of Assessment and Plan: Assesment Cirrhosis Diffuse hepatic mass like lesion Jaundice Portal HTN Anemia Pulmonary nodules-likely metastatic disease. CHUCHO DVT prophylaxis Plan - Peritoneal fluid transudative without signs of sbp. 4.8 Lit removed. Will discontinue antibiotics - MRI poor study but with normal pancreas. Multiple liver lesions. Patient unclear which dye she had allergy to. Will wait GI evaluation for MRI with gadolinium given CHUCHO and ?allergy. Hepatitis panel negative - CT chest with small rt pleural effusion and RML consolidation atelectasis vs pneumonia. Patient without fever or other respiratory symptoms. hold further antibiotics for now - hepatitis panel negative. trend LFT - CHUCHO improving. Likely prerenal in setting of cirrhosis. Continue albumin as 4 Lit removed. - Consult GI and Oncology on tuesday. - obtain CEA, AFP and CA 19-9. - Decreased Hb. without acute bleeding. Obtain stood occult. started on PRBC. Stop heparin. EPCD for DVT ppx - Time Spent with Patient Total time spent is greater than 50% in coordination of care (as documented) at patient's floor/unit and/or counseling patient: Internal Medicine: Result - Labs CBC & Chem 7: 06/11/18 04:00 06/11/18 04:00 Labs: Short CBC 06/11/18 Range/Units 04:00 WBC 10.1 (4.3-11.1) K/mcL Hgb 6.6 L (11.5-15.4) g/dL Hct 21.3 L (35.3-44.9) % Plt Count 235 (140-400) K/mcL Neutrophils # 8.2 (1.6-8.9) K/mcL BMP 06/11/18 04:00 Sodium 141 Potassium 3.4 L Chloride 107 Carbon Dioxide 24 BUN 23 Creatinine 1.41 H Glucose 91 Calcium 8.2 L Cardiac Enzymes 06/10/18 06/10/18 Range/Units 11:36 17:34 Troponin I 0.03 0.03 (< 0.04) ng/mL Liver Function 06/11/18 Range/Units 04:00 Total Bilirubin 10.2 H (0.3-1.0) mg/dL Direct Bilirubin 4.9 H (0.0-0.2) mg/dL AST 259 H (13-39) Units/L ALT 63 H (7-52) Units/L Alkaline Phosphatase 241 H (34-104) Units/L Albumin 2.8 L (3.5-5.7) g/dL - ABG Interpretation ABG results: PT/INR, D-dimer PT 15.7 Seconds (9.4-12.1) H 06/10/18 05:44 - Impressions Impressions Paracentesis Ultrasound 06/10/18 00:00 IMPRESSION: Successful ultrasound guided paracentesis. D/ / Luis Pham / Luis Pham Interpreting Provider: Luis Pham Abdomen MRI 06/10/18 04:05 IMPRESSION: 1. Technically limited exam without IV gadolinium and because of breathing motion degrading many of the series. 2. Hepatic cirrhosis with diffuse hepatic mass like lesions suboptimally characterized without IV gadolinium administration. Considerations include diffuse metastatic disease, regenerative nodules from cirrhosis, primary hepatocellular carcinoma or a combination of these 3. Largest lesion is noted in the left hepatic lobe as described above. 3. Cholelithiasis. 4. Abdominal ascites. 5. Small volume right pleural effusion. D/ / Ifeanyi Cordero / Ifeanyi Cordero Interpreting Provider: Ifeanyi Cordero Chest CT 06/10/18 05:46 IMPRESSION: 1. Slight interval increase in size of small right pleural effusion with slight interval progression of right middle lobe and right lower lobe airspace consolidation, most likely representing either atelectasis or pneumonia. 2. Persistent scattered pulmonary nodules, most consistent with metastatic disease. Suggest further characterization with PET-CT and/or tissue sampling. 3. Cirrhosis and portal hypertension. Additionally, there are scattered nodules throughout the liver parenchyma, which could be malignant. Suggest further characterization with a dedicated liver mass protocol CT or MRI study. 4. Stable 4.1 cm ectasia of the ascending aorta. D/ / 06/10/2018 11:37:43 Flex Mario MD / juany Interpreting Provider: Flex Mario MD Consult Discharge Plan - Plan Referrals: NONE,PCP [Primary Care Provider] - (1) Cirrhosis Qualifiers: Hepatic cirrhosis type: unspecified hepatic cirrhosis Ascites presence: with ascites Qualified Code(s): K74.60 - Unspecified cirrhosis of liver; R18.8 - Other ascites (2) Abdominal pain Qualifiers: Abdominal location: generalized Qualified Code(s): R10.84 - Generalized abdominal pain
--- NOTE | 2018-06-11 13:10 | Electrocardiograph Report ---
[address] [place], [place] [address] Test Date: 2018-06-10 Pat Name: Bonnie Westfall Department: 112 Room: 3A12 Gender: F Superintendent Circus: : 1940 Requested By: Jose Ball Order Number: [id number] Reading MD: Elida Llanes Measurements Intervals [place] Rate: 66 P: [place]: 0 QRS: -50 QRSD: 118 T: 105 QT: 436 QTc: 449 Interpretive Statements SUPRAVENTRICULAR RHYTHM LOW QRS VOLTAGE IN PRECORDIAL LEADS POSSIBLE RIGHT VENTRICULAR CONDUCTION DELAY INFERIOR MYOCARDIAL INFARCTION, PROBABLY OLD WITH POSTERIOR EXTENSION ANTEROLATERAL MYOCARDIAL INFARCTION, OF INDETERMINATE AGE Electronically Signed On 06-11-2018 13:08:55 EDT by Elida Llanes
[2018-06-11 13:57] LABS: Hematocrit 28.1 % (35.3-44.9); Hemoglobin 8.6 g/dL (11.5-15.4)
[2018-06-12 05:31] LABS: Hematocrit 25.1 % (35.3-44.9)
[2018-06-12 05:33] LABS: Hemoglobin 7.7 g/dL (11.5-15.4)
[2018-06-12 05:50] LABS: Albumin 3.5 g/dL (3.5-5.7); Albumin/Globulin Ratio 1.1 (1.1-2.2); Bilirubin,Total 14.1 mg/dL (0.3-1.0); Calcium 8.8 mg/dL (8.6-10.3); Globulin 3.2 g/dL (2.4-3.5); Potassium 3.3 mEq/L (3.5-5.1); Total Protein 6.7 g/dL (6.4-8.9)
--- NOTE | 2018-06-12 09:30 | Internal Med Progress Note ---
Hospitalist Progress Note - Encounter Date of Encounter: 06/12/18 Time of Encounter: 09:30 - Subjective Interval History: Patient seen and examined this morning at bedside. No acute overnight events. Denies any lightheadedness, chest pain, dizziness, shortness of breath. Denies any abdominal pain diastolic stool or blood in urine or stool. - Exam Vitals: Temp Pulse Resp BP Pulse Ox 98.2 F 93 16 128/64 94 06/12/18 05:24 06/12/18 05:24 06/12/18 05:24 06/12/18 05:24 06/12/18 05:24 Exam: General: In no acute distress. icteric sclera Respiratory exam: CTAB. no accessory muscle use, rales, rhonchi, wheezes Cardiovascular exam: RRR, +S1, +S2. no murmur, gallop, rubs. GI/Abdominal exam: Non-tender, mildly distended, normal bowel sounds, soft, no peritoneal signs. Extremities exam: 2+ pedal edema, no calf tenderness Neurological exam: CN II-XII intact, AO X3, no focal deficits. Skin exam: No skin rash - Assessment and Plan (1) Cirrhosis Current Visit: Yes Status: Acute (2) Abdominal pain Current Visit: Yes Status: Acute (3) Pulmonary nodules/lesions, multiple Current Visit: Yes Status: Acute (4) DVT prophylaxis Current Visit: Yes Status: Acute - Summary of Assessment and Plan Summary of Assessment and Plan: Assesment Cirrhosis Ascitis Diffuse hepatic mass like lesion Jaundice Portal HTN Anemia Pulmonary nodules-likely metastatic disease. CHUCHO DVT prophylaxis Plan - Peritoneal fluid transudative without signs of sbp. 4.8 Lit removed. Likely relate to cirrhosis. - H/o Methotraxate. Hepatic mass on imaging with multiple pulmonary nodule concern for metastasis. Will need biopsy vs Contrast MRI to further evaluate - MRI poor study but with normal pancreas. Multiple liver lesions. Patient unclear which dye she had allergy to. Will wait GI evaluation. Hepatitis panel negative - CHUCHO improving. Likely prerenal in setting of cirrhosis. Continue albumin as 4 Lit removed. Will consult Nephrology given need for contrast MRI to further evaluate. may just go ahead with liver biopsy after discussion with oncology - Consulted GI and Oncology - normal CEA, f/u AFP and CA 19-9. - positive stood occult. s/p PRBC but Hb downtrending. Will transfue if Hb<7. - EPCD for DVT ppx - Time Spent with Patient Total time spent is greater than 50% in coordination of care (as documented) at patient's floor/unit and/or counseling patient: Internal Medicine: Result - Labs CBC & Chem 7: 06/12/18 05:01 06/12/18 05:01 Labs: Short CBC 06/11/18 06/12/18 Range/Units 13:47 05:01 Hgb 8.6 L D 7.7 L (11.5-15.4) g/dL Hct 28.1 L 25.1 L (35.3-44.9) % BMP 06/12/18 05:01 Sodium 141 Potassium 3.3 L Chloride 106 Carbon Dioxide 23 BUN 19 Creatinine 1.21 H Glucose 91 Calcium 8.8 Liver Function 06/12/18 Range/Units 05:01 Total Bilirubin 14.1 H (0.3-1.0) mg/dL AST 283 H (13-39) Units/L ALT 68 H (7-52) Units/L Alkaline Phosphatase 223 H (34-104) Units/L Albumin 3.5 (3.5-5.7) g/dL - ABG Interpretation ABG results: PT/INR, D-dimer PT 15.7 Seconds (9.4-12.1) H 06/10/18 05:44 Consult Discharge Plan - Plan Referrals: NONE,PCP [Primary Care Provider] - ____ (1) Cirrhosis Qualifiers: Hepatic cirrhosis type: unspecified hepatic cirrhosis Ascites presence: with ascites Qualified Code(s): K74.60 - Unspecified cirrhosis of liver; R18.8 - Other ascites (2) Abdominal pain Qualifiers: Abdominal location: generalized Qualified Code(s): R10.84 - Generalized abdominal pain
[2018-06-12] MEDS: Albumin 25% 25gram/100mL 25 GM/100 ML IV.SOLN IVPB SCH ×3 (09:55→23:03)
--- NOTE | 2018-06-12 10:49 | Electrocardiograph Report ---
[place] [address] Test Date: 2018-06-10 Pat Name: Bonnie Westfall Department: 115 Room: 3A12 Gender: F Support Coordinator: BRANDON : 1940 Requested By: Elida Llanes Order Number: [id number] Reading MD: Shanell Santos Measurements Intervals [place] Rate: 87 P: 6 [place]: 186 QRS: 32 QRSD: 86 T: 58 QT: 375 QTc: 419 Interpretive Statements SINUS RHYTHM NONSPECIFIC ST-WAVE ABNORMALITY Electronically Signed On 06-12-2018 10:48:02 EDT by Shanell Santos
--- NOTE | 2018-06-12 12:15 | Oncology Inp Consult Note ---
<Chante Murillo L - Last Filed: 06/12/18 13:38> Date of Encounter: 06/12/18 Time of Encounter: 10:00 Assessment and Plan (1) Cirrhosis Status: Acute Assessment and plan: Imaging reveals cirrhosis with stigmata of portal hypertension New diagnosis as of May No reported h/o known hepatic steatosis, denies alcohol use In the setting of long standing MTX use (~30 years), known to cause hepatotoxocity Elevated AST/ALT Total bilirubin 14.1 Plan: Consult GI for further evaluation, await recommendations Qualifiers: Hepatic cirrhosis type: unspecified hepatic cirrhosis Ascites presence: with ascites Qualified Code(s): K74.60 - Unspecified cirrhosis of liver; R18.8 - Other ascites (2) Liver mass Status: Acute Assessment and plan: MRI abdomen reveals:Hepatic cirrhosis with diffuse hepatic mass like lesions suboptimally characterized without IV gadolinium administration. Considerations include diffuse metastatic disease, regenerative nodules from cirrhosis, primary hepatocellular carcinoma or a combination of these 3. Largest lesion is noted in the left hepatic lobe as described above. Ct of the chest also reveals Persistent scattered pulmonary nodules, most consistent with metastatic disease. Peritoneal fluid is negative for malignancy per cytology report Plan: CEA normal AFP/CA 19-9 pending Discussed with GI-planning for EGD/Colonoscopy tomorrow, further recs pending in regards to hyperbilirubinemia Consult to IR for CT guided liver lesion biopsy-will likely need to work in on 06/14 given plans for endoscopy tomorrow (3) Anemia Status: Acute Assessment and plan: Normocytic, normochromic anemia Denies melena/hematochezia History of prior pancytopenia, refused BMB in past In the setting of CKD, RA on MTX Stool occult blood + on 06/11/18 Plan: Iron profile, ferritin, folate, B12, LDH Transfuse for hgb <7 GI consulted, planning on colonoscopy/EGD tomorrow Qualifiers: Qualified Code(s): D64.9 - Anemia, unspecified - Data of Consult Patient: known to practice within the last 3 years Consult date: 06/12/18 Requesting Physician: Abbey Rivera MD Primary Care Provider: PCP NONE - Consult Narrative Reason for consult: Hepatic mass History of present illness: Ms. Westfall is an 78 year old female with past medical history significant for hyperlipidemia, CKD, hypertension, RA on MTX for extended period of time ~30 years, myocardial infarction, seizure disorder and newly diagnosed cirrhosis. She presented to [facility] with scleral icterus, abdominal bloating and pain and worsening lower extremity edema. She was transferred to [facility] for further evaluation and GI consultation. Patient notes abdominal symptoms have worsened over the past 2 weeks when she began noting abdominal bloating, distention and abdominal pain. She has had intermittent diarrhea as well. She had a CT of the chest 06/10/2018 which revealed right pleural effusion with consolidations concerning for atelectasis or pneumonia, persistent scattered pulmonary nodules, most consistent with metastatic disease, cirrhosis and portal hypertension, scattered nodules throughout the liver parenchyma. MRI of the abdomen w/o contrast revealed a technically limited exam with findings of Hepatic cirrhosis with diffuse hepatic mass like lesions suboptimally characterized without IV gadolinium administration. Considerations include diffuse metastatic disease, regenerative nodules from cirrhosis, primary hepatocellular carcinoma or a combination of these 3. Largest lesion is noted in the left hepatic lobe. She is status post paracentesis on 06/10/2018, cytology is negative for malignancy. GI consultation is pending for today. She reports exertional shortness of breath. She denies melena or hematochezia. Denies fever, chills, night sweats. Patient states next available and functional status gradually declined over the past year. She spends most of her time in bed or chair throughout the day. She does ambulate throughout home and cooks dinner on occasion. 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 Lives with her in [place]. She reports a 40 pound weight loss over the past one to 2 months of which has been intentional. Denies personal history of cancer. Family history positive for mother who was diagnosed with colon cancer at the age of 54 and . Past Med Surg Social Fam HX - Past Medical History Medical history: hyperlipidemia, hypertension, myocardial infarction, seizures Additional medical history: cardiac stents x 4 Psychiatric history: no psych history - Past Surgical History Surgical History: other Additional surgical history: ganglion cyst removed, left hip surgery - Social History Smoking Status: Never smoker Alcohol use: none Drug use: none - Family History Brother Hx Family Cardiac Disorders: Yes (heart attack) Hx Family Endocrine Disorder: Yes (Diabetes) Mother Living Status: Age at : 54 Hx Family Cancer: Yes Medications and Allergies Metoprolol XL (24 HR) Succ [Toprol Xl] 25 mg PO DAILY 08/15/15 [History] Simvastatin [Zocor] 40 mg PO QPM 08/15/15 [History] Fluticasone/Salmeterol [Advair 100-50 Diskus] 1 puff IH BID PRN 02/05/16 [History] Alendronate Sodium [Fosamax] 70 mg PO MO 03/18/16 [History] Albuterol Sulfate [Albuterol Inhaler] 2 puff IH Q4H PRN 04/15/17 [History] Furosemide [Lasix] 20 mg PO DAILY 06/09/18 [History] Lisinopril/Hydrochlorothiazide [Zestoretic 20-25 mg Tablet] 1 tab PO DAILY 06/10/18 [History] Multivitamin [Daily Multiple Vitamin] 1 tab PO DAILY 06/10/18 [History] Allergy/AdvReac Type Severity Reaction Status Date / Time Iodinated Contrast- Oral and Allergy Hives Verified 06/10/18 13:24 IV Dye Constitutional: Present: anorexia, fatigue, weakness, weight loss. Absent: chills, fever(s), frequent falls, headache(s), malaise, night sweats Eyes: Absent: change in vision Nose, mouth and throat: Present: dry mouth. Absent: dysphagia, odynophagia Cardiovascular: Absent: chest pain Respiratory: Present: dyspnea on exertion. Absent: cough Gastrointestinal: Present: as per HPI, abdominal pain, bloating, change in bowel habits, diarrhea, nausea. Absent: hematemesis, hematochezia, melena, vomiting Genitourinary: Absent: dysuria Musculoskeletal: Present: muscle weakness. Absent: arthralgias, myalgias Integumentary: Absent: pruritus, rash Neurological: Absent: confusion, focal weakness Psychiatric: Present: as per HPI. Absent: confusion Hematologic/Lymphatic: Present: as per HPI Oncology - Exam - Constitutional General appearance: average body habitus, cooperative, no acute distress, no febrile - Head Head exam: Present: atraumatic - Eye Eye exam: Present: scleral icterus - ENT ENT exam: Present: mucous membranes moist, normal oropharynx - Respiratory Respiratory exam: Present: CTAB. Absent: respiratory distress - Cardiovascular Cardiovascular exam: Present: RRR - GI/Abdominal GI/Abdominal exam: Present: distended, firm, normal bowel sounds, tenderness - Extremities Exam Extremities exam: Present: normal inspection. Absent: calf tenderness - Neurological Exam Neurological exam: Present: alert, oriented X3, no focal deficits, strengths equal and symetr throughout - Psychiatric Psychiatric exam: Present: normal affect, normal mood - Skin Skin exam: Present: dry, intact, normal color, warm Consult Discharge Plan - Plan Referrals: Giorgio Landis MD [Partnered Physician] - Inpatient Charges Provider: Dr. Thomas Pfeiffer <[email or web address] - Last Filed: 06/13/18 08:54> Date of Encounter: 06/13/18 - Data of Consult Requesting Physician: Abbey Rivera MD Primary Care Provider: PCP NONE - Attending Attestation I examined this patient and my medical decision-making was reviewed with the Advanced Practice Nurse, Chante Murillo. I agree with the documented findings, disposition and treatment plan as described except to the extent set forth below. 78 yo female with hx RA, MTX use and ~3mo history of not feeling well, initial wt loss, abd distension recent onset and leg swelling, s/p paracentesis and hyperbilirubinemia, direct/indirect, imaging showing possible liver metastatic lesions and pulm nodules ?cr./mets. Cytology is non diagnostic on fluid. She is scheduled for scope by GI. She will need liver biopsy for diagnosis after scope and findings. PS smear findings reviewed. Tumor markers CEA is nl. Imaging limited due to non contrasted films. Will follow with results to discuss management. Inpatient Charges Provider: Dr. Thomas Pfeiffer Consult - Inpatient: [id number]
--- NOTE | 2018-06-12 14:32 | Gastroenterology Consult Note ---
<QuinteroAlfredito farris Dutch - Last Filed: 06/12/18 14:29> Date of Encounter: 06/12/18 Time of Encounter: 10:55 - Assessment and plan (1) Cirrhosis Status: Acute Assessment and plan: MELD-Na 23, Child-Figueredo class C. Recommend 2-4 BMs daily, use Lactulose PRN. AFP pending. Hepatitis profile negative. Lifestyle Changes: 1. Total abstinence from alcohol including social drinking. 2. No smoking. 3. Gradual loss of weight. 4. Drink at least 3 cups of coffee due to its antioxidant effects in the liver, it reduces risk of HCC and advance fibrosis. 5. If needed, use less than 2 g/day of Tylenol (in divided doses). 6. Vaccination for Hep A, B, Pneumococcus if not already received and yearly influenza vaccination by PCP. 7. Avoid NSAIDS as can cause kidney damage. 8. Avoid benzodiazepines and other sedatives such as anti-histamines, narcotics etc. as can cause encephalopathy or confusion. 9. Take a late carbohydrate meal supplement as it reduces glucose production from protein breakdown and thus improves nutrition. 10. In cirrhosis, statins are safe to use and also improve portal hypertension and decrease risk of HCC. 11. Screening: Hepatocellular cancer screening: US of liver and AFP every 6 months Qualifiers: Hepatic cirrhosis type: unspecified hepatic cirrhosis Ascites presence: wi ascites Qualified Code(s): K74.60 - Unspecified cirrhosis of liver; R18.8 - Other ascites (2) Anemia Status: Acute Assessment and plan: Hgb 7.4 on admission which dropped to 6.6 on 06/11. Hgb 7.7 today. FOBT positive. Continue to monitor CBC and transfuse PRBC as needed. Plan for EGD tomorrow to r/o esophagitis, gastritis, duodenitis, PUD, MW tear, or AVM. Keep NPO at midnight. Qualifiers: Qualified Code(s): D64.9 - Anemia, unspecified (3) Ascites Status: Acute Assessment and plan: S/p paracentesis with 4800 ml removed. Peritoneal fluid negative to date Qualifiers: Ascites type: other type Qualified Code(s): R18.8 - Other ascites (4) Liver mass Status: Acute Assessment and plan: Consider liver biopsy. CEA 3.4. AFP and CA 19-9 pending. Check INNA. (5) Pulmonary nodules/lesions, multiple Status: Acute - Time Spent With Patient Total time spent is greater than 50% in coordination of care (as documented) at patient's floor/unit and/or counseling patient: GI History of Present Illness - Data of Consult Patient: new to practice Consult date: 06/12/18 Requesting Physician: Abbey Rivera MD - Consult Narrative Reason for consult: Cirrhosis, painless jaundice History of present illness: Ms. Westfall is a 78 year old female with PMHx of HLD, CKD, HTN, RA on MTX, IN, and newly diagnosed cirrhosis. She presented to [place] [facility] with scleral icterus, abdominal bloating/pain and worsening lower extremity edema. She was transferred to [facility] for further evaluation and GI consultation. CT A/P 05/19 showed pulmonary nodules in cirrhosis. CT chest 06/02/2018 showed approximately 50 pulmonary nodules consistent with metastatic disease, cirrhosis with questionable liver mass. MRI abdomen during this admission showed cirrhosis with diffuse hepatic mass like lesion largest 6.7 x 8.9 cm. Patient denies any history of fatty liver, hepatitis C, or alcohol abuse. She is status post paracentesis with 4800 mL removed. She denies any fevers, chest pain, constipation, diarrhea, melena, or hematochezia. On admission patient was jaundiced with TB 9.3, AST 245, ALT 65. Today TB 14.1, AST 283, ALT 68. Procedures: olonoscopy 10/19/2011 Dr. Smiley: Diverticulosis. EGD 10/19/2011 Dr. Smiley: LA grade a reflux esophagitis, gastritis, duodenitis, GE junction with incomplete intestinal metaplasia. NSAIDs: None Anticoagulation: None Past Med Surg Social Fam HX - Past Medical History Medical history: hyperlipidemia, hypertension, myocardial infarction, seizures Additional medical history: cardiac stents x 4 Psychiatric history: no psych history - Past Surgical History Surgical History: other Additional surgical history: ganglion cyst removed, left hip surgery - Social History Smoking Status: Never smoker Alcohol use: none Drug use: none - Family History Brother Hx Family Cardiac Disorders: Yes (heart attack) Hx Family Endocrine Disorder: Yes (Diabetes) Mother Living Status: Age at : 54 Hx Family Cancer: Yes - Gastrointestinal Gastrointestinal: Present: as per HPI - Constitutional Constitutional: as per HPI - EENT Eyes: as per HPI Ears: Present: as per HPI Nose, mouth and throat: Present: as per HPI - Cardiovascular Cardiovascular ROS: Present: as per HPI - Respiratory Respiratory IM: Present: as per HPI - Genitourinary Genitourinary: Absent: change in color, Urinary frequency - Neurological ROS Neurological GI: Present: as per HPI - Hematologic/Lymphatic Hematologic/Lymphatic pediatric: Present: as per HPI - Musculoskeletal Musculoskeletal ROS GI: Present: as per HPI - Integumentary Integumentary GI: Present: as per HPI - Psychiatric ROS Psychiatric GI: Present: as per HPI - Endocrine Endocrine IM: Present: as per HPI - Constitutional Vitals: Temp Pulse Resp BP Pulse Ox 98.9 F 95 16 154/78 93 06/12/18 11:50 06/12/18 11:50 06/12/18 11:50 06/12/18 11:50 06/12/18 11:50 General appearance: Present: cooperative, A&O X 3, no acute distress, answers questions appropriately - Head Head exam: Present: atraumatic, normocephalic - Eye Eye exam: Present: normal appearance, sclera anicteric - ENT ENT exam: Present: mucous membranes dry - Neck Neck exam general surgery: Present: normal inspection, trachea midline - Respiratory Respiratory exam: Present: CTAB. Absent: rales, rhonchi - Cardiovascular Cardiovascular exam: Present: RRR, +S1, +S2 - GI/Abdominal GI/Abdominal exam: Present: distended, firm, soft, no peritoneal signs. Absent: guarding, tenderness - Rectal Rectal exam: Present: deferred - Extremities Exam Extremities exam: Present: warm - Neurological Exam Neurological exam: Present: no focal deficits - Psychiatric Psychiatric exam: Present: normal affect, normal mood - Skin Skin exam: Present: dry, intact, normal color, warm Results - Labs CBC & Chem 7: 06/12/18 05:01 06/12/18 05:01 Labs: Last Result 06/12/18 05:01 Calcium 8.8 Entire Visit 06/12/18 06/12/18 05:01 05:01 Hgb 7.7 L Hct 25.1 L Total Bilirubin 14.1 H AST 283 H ALT 68 H - ABG ABG results: PT/INR, D-dimer PT 15.7 Seconds (9.4-12.1) H 06/10/18 05:44 Consult Discharge Plan - Plan Referrals: Giorgio Landis MD [Partnered Physician] - <MariuszElian - Last Filed: 06/19/18 05:49> Date of Encounter: 06/12/18 - Time Spent With Patient Total time spent is greater than 50% in coordination of care (as documented) at patient's floor/unit and/or counseling patient: GI History of Present Illness - Data of Consult Requesting Physician: Abbey Rivera MD - Consult Narrative History of present illness: Ms. Westfall is a 78 year old female - Constitutional Vitals: Temp Pulse Resp BP Pulse Ox 97.8 F 75 16 98/67 91 06/15/18 14:21 06/15/18 14:21 06/15/18 14:21 06/15/18 14:21 06/15/18 14:21 Results - Labs CBC & Chem 7: 06/15/18 04:00 06/15/18 04:00 - ABG ABG results: PT/INR, D-dimer PT 22.0 Seconds (9.4-12.1) H 06/15/18 04:00 - Attending Attestation I have personally performed a face to face evaluation on this patient. I have reviewed and agree with the care plan. History and Exam by me shows:
--- NOTE | 2018-06-12 18:03 | Anesthesia Evaluation PreOp ---
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 History: Seizures (one episode in 2009, not being medically treated) Other Medical History: Renal (CKD stage 3), GERD Anesthesia History: No Prior Anesthetic Complications, Past Anesthesia Alcohol Use: none Drug use: none Medications and Allergies Metoprolol XL (24 HR) Succ [Toprol Xl] 25 mg PO DAILY 08/15/15 [History] Simvastatin [Zocor] 40 mg PO QPM 08/15/15 [History] Fluticasone/Salmeterol [Advair 100-50 Diskus] 1 puff IH BID PRN 02/05/16 [History] Alendronate Sodium [Fosamax] 70 mg PO MO 03/18/16 [History] Albuterol Sulfate [Albuterol Inhaler] 2 puff IH Q4H PRN 04/15/17 [History] Furosemide [Lasix] 20 mg PO DAILY 06/09/18 [History] Lisinopril/Hydrochlorothiazide [Zestoretic 20-25 mg Tablet] 1 tab PO DAILY 06/10/18 [History] Multivitamin [Daily Multiple Vitamin] 1 tab PO DAILY 06/10/18 [History] Allergy/AdvReac Type Severity Reaction Status Date / Time Iodinated Contrast- Oral and Allergy Hives Verified 06/10/18 13:24 IV Dye - Meds/Allergy Pre-op Review Medications Reviewed: Yes Allergies Reviewed: Yes Beta Blockers on Current Med List: No Anesthesia Results - Labs 06/12/18 05:01 06/12/18 05:01 - Imaging EKG: report reviewed (06/10/[address]-WAVE ABNORMALITY) Anesthesia Exam Vital Signs/O2 Sat, Most Current Temp Pulse Resp BP Pulse Ox 98.7 F 94 18 138/76 94 06/12/18 14:55 06/12/18 14:55 06/12/18 14:55 06/12/18 14:55 06/12/18 14:55 Height: 5'5''/1.65m Weight: 164 lbs/74.6 kg NPO (# of Hours): 8 Pain Scale: 0 Pain Scale Used: Numeric (1 - 10) - HEENT Pupil (Motor): EOMI Mallampati: III Teeth: Poor dentition Oral Opening: Greater than 3 - DREDGE PUMPER LOC: Oriented DREDGE PUMPER Motor: Normal RUE, Normal LUE, Normal RLE, Normal LLE, Normal Face DREDGE PUMPER Sensory: Normal: RUE, LUE, RLE, LLE, Face - Cardiac Rhythm: Regular Murmur: None - Pulmonary Breath Sounds: bilateral Clear Respiratory Effort: Symmetrical Anesthesia Assess/Plan ASA Score: 3 Level of consciousness: Cooperative, Oriented, Tranquil Anesthetic Plan: MAC Monitoring Plan: Standard Monitors
[2018-06-12] MEDS: Pantoprazole 40 MG VIAL IVP SCH (18:11)
[2018-06-13 02:05] LABS: Hemoglobin 8.2 g/dL (11.5-15.4)
[2018-06-13 02:24] LABS: Calcium 9.3 mg/dL (8.6-10.3); Potassium 3.7 mEq/L (3.5-5.1)
[2018-06-13 02:46] LABS: % Iron Saturation 59 % (15-50); Ferritin > 1500 ng/mL (10-120); Iron 69 mcg/dL (50-170); Lactate Dehydrogenase 371 Units/L (140-271); Transferrin 83 mg/dL (203-362)
[2018-06-13 02:57] LABS: Folate 5.5 ng/mL (3.0-16.0)
[2018-06-13] MEDS: Pantoprazole 40 MG VIAL IVP SCH ×2 (05:09→17:18)
[2018-06-13] MEDS ORDERED: Gadolinium Contrast Agent (WT Based) IV PRN (06:23)
[2018-06-13] MEDS: Albumin 25% 25gram/100mL 25 GM/100 ML IV.SOLN IVPB SCH ×2 (07:25→16:13)
--- NOTE | 2018-06-13 10:19 | Internal Med Progress Note ---
Hospitalist Progress Note - Encounter Date of Encounter: 06/13/18 Time of Encounter: 11:50 - Subjective Interval History: Patient seen and examined this morning at bedside. No acute overnight events. Denies new complains but appears slightly short of breath. Denies any abdominal pain nausea vomiting or diarrhea. Denies any cristian blood in stool. - Exam Vitals: Temp Pulse Resp BP Pulse Ox 98.1 F 99 18 142/54 92 06/13/18 05:02 06/13/18 05:02 06/13/18 05:02 06/13/18 05:02 06/13/18 05:02 Exam: General: In no acute distress. icteric sclera Respiratory exam: CTAB. mild accessory muscle use, no rales, rhonchi, wheezes Cardiovascular exam: RRR, +S1, +S2. no murmur, gallop, rubs. GI/Abdominal exam: Non-tender, mildly distended, normal bowel sounds, soft, no peritoneal signs. Extremities exam: 2+ pedal edema, no calf tenderness Neurological exam: CN II-XII intact, AO X3, no focal deficits. Skin exam: No skin rash - Assessment and Plan (1) Cirrhosis Current Visit: Yes Status: Acute (2) Abdominal pain Current Visit: Yes Status: Acute (3) Pulmonary nodules/lesions, multiple Current Visit: Yes Status: Acute (4) DVT prophylaxis Current Visit: Yes Status: Acute - Summary of Assessment and Plan Summary of Assessment and Plan: Assesment Cirrhosis Ascitis Hepatocellular carcinoma Jaundice Portal HTN Anemia Pulmonary nodules-likely metastatic disease. CHUCHO DVT prophylaxis Plan - Peritoneal fluid transudative without signs of sbp. 4.8 Lit removed. Likely relate to cirrhosis. - H/o Methotraxate. Hepatic mass on imaging with multiple pulmonary nodule concern for metastasis. MRI consistent with Hepatocellular carcinoma. Elevated AFP 2099.Will discuss with Oncology for need for liver/lung biopsy - Plan for EGD per GI. Hepatitis panel negative - CHUCHO improving. Likely prerenal in setting of cirrhosis. - GI and Oncology following - positive stood occult. s/p PRBC but Hb downtrending. Will transfue if Hb<7. EGD today. Possible portal hypertensive gastropathy. c/w PPI - Start coreg for portal hypertension - EPCD for DVT ppx - Time Spent with Patient Total time spent is greater than 50% in coordination of care (as documented) at patient's floor/unit and/or counseling patient: Internal Medicine: Result - Labs CBC & Chem 7: 06/13/18 01:36 06/13/18 01:36 Labs: Short CBC 06/13/18 Range/Units 01:36 Hgb 8.2 L (11.5-15.4) g/dL Hct 26.0 L (35.3-44.9) % BMP 06/13/18 01:36 Sodium 138 Potassium 3.7 Chloride 108 H Carbon Dioxide 22 L BUN 17 Creatinine 1.15 Glucose 103 Calcium 9.3 - ABG Interpretation ABG results: PT/INR, D-dimer PT 15.7 Seconds (9.4-12.1) H 06/10/18 05:44 Consult Discharge Plan - Plan Referrals: Giorgio Landis MD [Partnered Physician] - (1) Cirrhosis Qualifiers: Hepatic cirrhosis type: unspecified hepatic cirrhosis Ascites presence: with ascites Qualified Code(s): K74.60 - Unspecified cirrhosis of liver; R18.8 - Other ascites (2) Abdominal pain Qualifiers: Abdominal location: generalized Qualified Code(s): R10.84 - Generalized abdominal pain
[2018-06-13 10:31] LABS: AFP Tumor Marker Non-Pregnant 2099 ng/mL (0-9); Cancer Antigen-GI (CA 19-9) 133 U/mL (0-37)
--- NOTE | 2018-06-13 11:16 | Oncology Inp Progress Note ---
<Chante Richey L - Last Filed: 06/13/18 15:09> Date of Encounter: 06/13/18 Time of Encounter: 14:30 (1) Cirrhosis Current Visit: Yes Status: Acute Assessment and plan: Imaging reveals cirrhosis with stigmata of portal hypertension New diagnosis as of May No reported h/o known hepatic steatosis, denies alcohol use In the setting of long standing MTX use (~30 years), known to cause hepatotoxocity Elevated AST/ALT Total bilirubin 14.1 Plan: Consult GI for further evaluation, await recommendations Qualifiers: Hepatic cirrhosis type: unspecified hepatic cirrhosis Ascites presence: with ascites Qualified Code(s): K74.60 - Unspecified cirrhosis of liver; R18.8 - Other ascites (2) Anemia Current Visit: Yes Status: Acute Assessment and plan: Normocytic, normochromic anemia Denies melena/hematochezia History of prior pancytopenia, refused BMB in past In the setting of CKD, RA on MTX Stool occult blood + on 06/11/18 Iron/ferritin/B12 replete Folate low end normal 5.5 LDH mildly elevated-secondary to gastrointestinal etiology in setting of hyp erbilirubinemia? Jordon mildly positive at 1+ Plan: Transfuse for hgb <7 GI consulted, planning for EGD today Qualifiers: Qualified Code(s): D64.9 - Anemia, unspecified (3) Hepatocellular carcinoma Current Visit: Yes Status: Acute Assessment and plan: MRI abdomen with and without contrast today reveals a 3.5 x 2.8 cm subcapsular mass in segment 7 of the liver is consistent with hepatocellular carcinoma (LR-5), 2.9 x 2.7 cm subcapsular lesion in segment 2 of the liver is hypointense to normal liver parenchyma on venous phase imaging and is intermediate probability for HCC (LR-3), Cirrhosis with stigmata of portal hypertension including borderline splenomegaly and moderate to large volume ascites. CT of the chest also reveals Persistent scattered pulmonary nodules, most consistent with metastatic disease. Peritoneal fluid is negative for malignancy per cytology report Plan: CEA normal AFP resulted significantly elevated at 2098 Given LR-5 category designation on imaging, diagnosis may be made on imaging alone, likely obviating need for biopsy, will discuss with Dr. Lockhart to determine need for further biopsy Imaging is concerning for multifocal disease Her hyperbilirubinemia complicates candidacy for treatment, currently she is not a candidate for sorafenib, further treatment decision TBD per Dr. Lockhart Oncology: Subj Interval history: Ms. Westfall is resting in bed. Her is at bedside. She denies pain. She is awaiting EGD sometime this afternoon. Denies chest pain, SOB, nausea, vomiting or diarrhea. Reports stool is light and sharonda colored and without melena/hematochezia. - Constitutional General appearance: cooperative, no acute distress, no febrile - Head Head exam: Present: atraumatic - Eye Eye exam: Present: scleral icterus - ENT ENT exam: Present: mucous membranes moist, normal oropharynx - Respiratory Respiratory exam: Present: decreased breath sounds, CTAB. Absent: respiratory distress - Cardiovascular Cardiovascular exam: Present: RRR - GI/Abdominal GI/Abdominal exam: Present: distended, normal bowel sounds, soft, tenderness. Absent: guarding, rebound - Extremities Exam Extremities exam: Present: pedal edema. Absent: calf tenderness Additional comments: Pitting BLE edema - Neurological Exam Neurological exam: Present: alert, oriented X3, no focal deficits, strengths equal and symetr throughout - Psychiatric Psychiatric exam: Present: normal affect, normal mood - Skin Skin exam: Present: dry, warm Oncology: Obj Data - Labs CBC & Chem 7: 06/13/18 01:36 06/13/18 01:36 Consult Discharge Plan - Plan Referrals: Giorgio Landis MD [Partnered Physician] - Inpatient Charges Provider: Dr. Thomas Pfeiffer <Alda Pfeiffer - Last Filed: 06/14/18 17:03> Date of Encounter: 06/14/18 Oncology: Subj Interval history: MRI findings reviewed. Liver/lung bx after EGD. AFP elevated. Due to hyperbilirubinemia may not be a candidate for TKI, may consider immunotherapy. Plan reviewed with patient. She is waiting for scope to be completed and NPO. I examined this patient and my medical decision-making was reviewed with the Advanced Practice Nurse, Chante Richey. I agree with the documented findings, disposition and treatment plan as described except to the extent set forth below. Oncology: Obj Data - Labs CBC & Chem 7: 06/14/18 05:04 06/14/18 05:04 Inpatient Charges Provider: Dr. Thomas Pfeiffer Follow up - Inpatient: [id number]
[2018-06-14] MEDS ORDERED: diazePAM 10 MG/2 ML SYRINGE IVP ONE (04:29)
[2018-06-14] MEDS: Pantoprazole 40 MG VIAL IVP SCH ×2 (05:01→17:46)
[2018-06-14 05:16] LABS: Red Blood Count 2.87 M/mcL (3.82-4.97)
[2018-06-14 05:22] LABS: Hematocrit 25.6 % (35.3-44.9); Hemoglobin 7.7 g/dL (11.5-15.4); Immature Platelets 3.5 % (1.1-6.1); Mean Corpuscular HGB Conc 30.1 g/dL (31.6-35.5); Mean Corpuscular Hemoglobin 26.8 pg (28.0-33.3); Mean Corpuscular Volume 89.2 fL (83.0-100.0); Platelet Count 151 K/mcL (140-400)
[2018-06-14 05:33] LABS: Potassium 3.9 mEq/L (3.5-5.1)
--- NOTE | 2018-06-14 06:47 | Event Note ---
Date of Encounter: 06/13/18 Time of Encounter: 20:15 Alerted by patient's nurse BETO Simms that anesthesia had come to the floor to get consent forms for patient's EGD tomorrow. Anesthesia stated they had her scheduled for upper and lower scopes, however notes did not specify colonoscopy being done. No bowel prep ordered. Paged Surgery operations processor and spoke w/Dr. Wild who said he was not familiar with this pt. and was unsure if colonoscopy was being done as he was Acute Surgery operations processor. I informed the nurse of this conversation and instructed her that no bowel would be ordered as there was confusion as to what procedures were, in fact, being done. Nurse instructed to continue monitoring pt. very closely and alert me immediately of any adverse changes.
[2018-06-14 09:24] LABS: ANA IgG by ELISA NONE DETECTED (None Detected)
[2018-06-14] MEDS ORDERED: Lidocaine -MPF 2% 2 ML VIAL ONE (11:53)
[2018-06-14] MEDS ORDERED: *HR* Propofol 200 MG/20 ML VIAL IVP ONE (11:53)
--- NOTE | 2018-06-14 12:00 | Oncology Inp Progress Note ---
<RicheyChante L - Last Filed: 06/14/18 16:15> Date of Encounter: 06/14/18 Time of Encounter: 11:00 (1) Cirrhosis Current Visit: Yes Status: Acute Assessment and plan: Imaging reveals cirrhosis with stigmata of portal hypertension New diagnosis as of May No reported h/o known hepatic steatosis, denies alcohol use In the setting of long standing MTX use (~30 years), known to cause hepatotoxocity Elevated AST/ALT Total bilirubin 14.1 Plan: Consult GI for further evaluation, await recommendations Qualifiers: Hepatic cirrhosis type: unspecified hepatic cirrhosis Ascites presence: with ascites Qualified Code(s): K74.60 - Unspecified cirrhosis of liver; R18.8 - Other ascites (2) Anemia Current Visit: Yes Status: Acute Assessment and plan: Normocytic, normochromic anemia Denies melena/hematochezia History of prior pancytopenia, refused BMB in past In the setting of CKD, RA on MTX Stool occult blood + on 06/11/18 Iron/ferritin/B12 replete Folate low end normal 5.5 LDH mildly elevated-secondary to gastrointestinal etiology in setting of hyp erbilirubinemia? Jordon mildly positive at 1+ Plan: Transfuse for hgb <7 GI consulted, planning for EGD today Qualifiers: Qualified Code(s): D64.9 - Anemia, unspecified (3) Hepatocellular carcinoma Current Visit: Yes Status: Acute Assessment and plan: MRI abdomen with and without contrast today reveals a 3.5 x 2.8 cm subcapsular mass in segment 7 of the liver is consistent with hepatocellular carcinoma (LR-5), 2.9 x 2.7 cm subcapsular lesion in segment 2 of the liver is hypointense to normal liver parenchyma on venous phase imaging and is intermediate probability for HCC (LR-3), Cirrhosis with stigmata of portal hypertension including borderline splenomegaly and moderate to large volume ascites. CT of the chest also reveals Persistent scattered pulmonary nodules, most consistent with metastatic disease. Peritoneal fluid is negative for malignancy per cytology report Plan: CEA normal AFP resulted significantly elevated at 2098 Given LR-5 category designation on imaging, diagnosis may be made on imaging alone, discussed with Dr. Lockhart and planning on lung lesion biopsy today to establish diagnosis of metastatic disease Imaging is concerning for multifocal disease Her hyperbilirubinemia complicates candidacy for treatment, currently she is not a candidate for sorafenib, further treatment decision TBD per Dr. Lockhart-may be a candidate for immunotherapy Oncology: Subj Interval history: Ms. Westfall is resting in chair, watching TV. no acute events noted overnight. She did not have planned EGD yesterday, planning for EGD today. She denies pain or any other physical complaint, overall she feels well. - Constitutional General appearance: cooperative, no acute distress, no febrile - Head Head exam: Present: atraumatic - Eye Eye exam: Present: scleral icterus - ENT ENT exam: Present: mucous membranes moist, normal oropharynx - Respiratory Respiratory exam: Present: CTAB. Absent: respiratory distress - Cardiovascular Cardiovascular exam: Present: RRR - GI/Abdominal GI/Abdominal exam: Present: distended, normal bowel sounds, soft. Absent: tenderness - Extremities Exam Extremities exam: Present: pedal edema Additional comments: 1-2+ BLE pitting edema - Neurological Exam Neurological exam: Present: alert, oriented X3, no focal deficits, strengths equal and symetr throughout - Psychiatric Psychiatric exam: Present: normal affect, normal mood - Skin Skin exam: Present: dry, intact, warm Oncology: Obj Data - Labs CBC & Chem 7: 06/14/18 05:04 06/14/18 05:04 Consult Discharge Plan - Plan Referrals: Giorgio Landis MD [Partnered Physician] - Inpatient Charges Provider: Dr. Thomas Pfeiffer <KentrellAlda - Last Filed: 06/14/18 16:59> Date of Encounter: 06/14/18 Oncology: Subj Interval history: Liver lesion suggestive of HCC in imaging. Pulm nodule to be biopsied. Fluid non diagnostic. Cirrhosis, elevated bilirubin, varices-on scope today noted. Plan reviewed with patient. I examined this patient and my medical decision-making was reviewed with the Advanced Practice Nurse, Chante Richey. I agree with the documented findings, disposition and treatment plan as described except to the extent set forth below. Oncology: Obj Data - Labs CBC & Chem 7: 06/14/18 05:04 06/14/18 05:04 Inpatient Charges Provider: Dr. Thomas Pfeiffer Follow up - Inpatient: [id number]
--- NOTE | 2018-06-14 12:35 | Internal Med Progress Note ---
Hospitalist Progress Note - Encounter Date of Encounter: 06/14/18 Time of Encounter: 09:00 - Subjective Interval History: Patient feels more comfortable after paracentesis. Denies abdominal pain, nausea, or vomiting. No overnight fever. - Exam Vitals: Temp Pulse Resp BP Pulse Ox 97.6 F 73 16 119/70 90 06/14/18 11:23 06/14/18 11:23 06/14/18 11:23 06/14/18 11:23 06/14/18 11:23 Exam: Pt is AAO x 3, in NAD HEENT: NC/AT, PERRL, icterus Neck: Supple, no JVD, no LAD Lungs: CTA b/l Heart: S1S2, RRR Abd: Soft, nontender, BS present Ext: ROM wnl, moderate b/l pedal edema, no calf tenderness Neuro: No focal deficit - Assessment and Plan (1) Cirrhosis Current Visit: Yes Status: Acute Assessment and Plan: Etiology is undetermined. GI consult appreciated. - Hepatitis panel negative, INNA negative, patient denies alcoholism - High ferritin level noticed, reason for cirrhosis? - Further management per GI recommendations. (2) Abdominal pain Current Visit: Yes Status: Acute Assessment and Plan: Improved after paracentesis. Peritoneal PMN 46, SBP is less likely. (3) Pulmonary nodules/lesions, multiple Current Visit: Yes Status: Acute Assessment and Plan: Highly suspect HCC with pulmonary metastasis. Oncology is on case, plan for pulmonary nodule biopsy. (4) DVT prophylaxis Current Visit: Yes Status: Acute Assessment and Plan: EPCDs (5) Ascites Current Visit: Yes Status: Acute Assessment and Plan: Patient has cirrhosis with ascites. Had 4.8 L ascites removed by paracentesis. Cytology results shows negative for malignancy. - Patient was replaced albumin. (6) Hepatocellular carcinoma Current Visit: Yes Status: Acute Assessment and Plan: Patient has liver mass, elevated AFP and CA-19-9. Oncology consult appreciated. Highly suspect HCC. - Patient's case complicated by elevated bilirubin and poor liver function. - Plan for lung nodule biopsy to establish final diagnosis. - Currently supportive treatment. Further management per oncology recommendations. (7) CAD (coronary artery disease) Current Visit: No Status: Acute Assessment and Plan: Continue home medications. Patient denies chest pain DVT Prophylaxis: EPCDs - Time Spent with Patient Total time spent is greater than 50% in coordination of care (as documented) at patient's floor/unit and/or counseling patient: 30 minutes 25 - 35 minutes Plan of Care Discussed with: patient Internal Medicine: Result - Labs CBC & Chem 7: 06/14/18 05:04 06/14/18 05:04 Labs: Short CBC 06/14/18 Range/Units 05:04 WBC 11.4 H (4.3-11.1) K/mcL Hgb 7.7 L (11.5-15.4) g/dL Hct 25.6 L (35.3-44.9) % Plt Count 151 (140-400) K/mcL BMP 06/14/18 05:04 Sodium 143 Potassium 3.9 Chloride 108 H Carbon Dioxide 24 BUN 22 Creatinine 1.07 Glucose 96 Calcium 10.0 - ABG Interpretation ABG results: PT/INR, D-dimer PT 15.7 Seconds (9.4-12.1) H 06/10/18 05:44 - Impressions Impressions Chest CT 06/10/18 05:46 IMPRESSION: 1. Slight interval increase in size of a small right pleural effusion with slight interval progression of right middle lobe and right lower lobe airspace consolidation, most likely representing either atelectasis or pneumonia. 2. Persistent scattered pulmonary nodules, most consistent with metastatic disease. Suggest further characterization with a PET-CT and/or tissue sampling. 3. Cirrhosis and portal hypertension. Additionally, there are scattered nodules throughout the liver parenchyma, which could be malignant. Suggest further characterization with a dedicated liver mass protocol CT or MRI study. 4. Stable 4.1 cm ectasia of the ascending aorta. D/ / 06/10/2018 11:37:43 Flex Mario MD / juany Interpreting Provider: Flex Mario MD Consult Discharge Plan - Plan Referrals: Giorgio Landis MD [Partnered Physician] - (1) Cirrhosis Qualifiers: Hepatic cirrhosis type: unspecified hepatic cirrhosis Ascites presence: with ascites Qualified Code(s): K74.60 - Unspecified cirrhosis of liver; R18.8 - Other ascites (2) Abdominal pain Qualifiers: Abdominal location: generalized Qualified Code(s): R10.84 - Generalized abdominal pain (5) Ascites Qualifiers: Ascites type: other type Qualified Code(s): R18.8 - Other ascites (7) CAD (coronary artery disease) Qualifiers: Coronary Disease-Associated Artery/Lesion type: [place] artery [place] vs. transplanted heart: [place] heart Associated angina: without angina Qualified Code(s): I25.10 - Atherosclerotic heart disease of [place] coronary artery without angina pectoris
[2018-06-14] MEDS ORDERED: 0.9 % Sodium Chloride 500 ML IVC SCH (13:00)
[2018-06-15 04:12] LABS: Basophils % 0.1 %; Eosinophils % 0.2 %; Hematocrit 26.2 % (35.3-44.9); Hemoglobin 8.1 g/dL (11.5-15.4); Immature Granulocytes % 0.7 % (0-4); Lymphocytes % 8.7 %; Mean Corpuscular HGB Conc 30.9 g/dL (31.6-35.5); Mean Corpuscular Hemoglobin 27.5 pg (28.0-33.3); Mean Corpuscular Volume 88.8 fL (83.0-100.0); Monocytes # 0.9 K/mcL (0.0-1.3); Monocytes % 7.6 %; Platelet Count 157 K/mcL (140-400); Red Blood Count 2.95 M/mcL (3.82-4.97); Segmented Neutrophils % 82.7 %
[2018-06-15 04:13] LABS: Neutrophils # 9.4 K/mcL (1.6-8.9)
[2018-06-15 04:32] LABS: Albumin 3.5 g/dL (3.5-5.7); Bilirubin,Total 20.2 mg/dL (0.3-1.0); Calcium 9.7 mg/dL (8.6-10.3); Globulin 3.5 g/dL (2.4-3.5); Potassium 4.1 mEq/L (3.5-5.1)
[2018-06-15 04:36] LABS: Anisocytosis 3+ (Not Present); Microcytosis Present (Not Present); Poikilocytosis 3+ (Not Present)
[2018-06-15 04:37] LABS: Hypochromasia Present (Not Present); Ovalocytes 2+ (Not Present); Platelet Estimate Normal (Normal)
[2018-06-15 04:49] LABS: Bilirubin,Indirect 8.4 mg/dL (0.0-1.2); Bilirubin,Total 20.4 mg/dL (0.3-1.0)
[2018-06-15] MEDS: Pantoprazole 40 MG VIAL IVP SCH (06:08)
--- NOTE | 2018-06-15 13:42 | Internal Med Progress Note ---
Hospitalist Progress Note - Encounter Date of Encounter: 06/15/18 Time of Encounter: 09:00 - Subjective Interval History: Pt feels better. No nausea. Mild abd pain. Pt said she is aware that she most likely has liver cancer with lung metastesis. - Exam Vitals: Temp Pulse Resp BP Pulse Ox 97.3 F L 70 16 103/68 95 06/15/18 10:31 06/15/18 10:31 06/15/18 10:31 06/15/18 10:31 06/15/18 10:31 Exam: Pt is AAO x 3, in NAD HEENT: NC/AT, PERRL, icterus Neck: Supple, no JVD, no LAD Lungs: CTA b/l Heart: S1S2, RRR Abd: Soft, nontender, BS present Ext: ROM wnl, moderate b/l pedal edema, no calf tenderness Neuro: No focal deficit - Assessment and Plan (1) Hepatocellular carcinoma Current Visit: Yes Status: Acute Assessment and Plan: Patient has liver mass, elevated AFP and CA-19-9. Oncology consult appreciated. Highly suspect HCC. - Patient's case complicated by elevated bilirubin and poor liver function. - Plan for lung nodule biopsy to establish final diagnosis. - Currently supportive treatment. Further management per oncology recommendations. - Quick worsening liver function with elevated bilirubin level, prognosis is guarded. (2) Cirrhosis Current Visit: Yes Status: Acute Assessment and Plan: Etiology is undetermined. GI consult appreciated. - Hepatitis panel negative, INNA negative, patient denies alcoholism - High ferritin level noticed, reason for cirrhosis? - Further management per GI recommendations. (3) Abdominal pain Current Visit: Yes Status: Acute Assessment and Plan: Improved after paracentesis. Peritoneal PMN 46, SBP is less likely. (4) Pulmonary nodules/lesions, multiple Current Visit: Yes Status: Acute Assessment and Plan: Highly suspect HCC with pulmonary metastasis. Oncology is on case, plan for pulmonary nodule biopsy. (5) DVT prophylaxis Current Visit: Yes Status: Acute Assessment and Plan: EPCDs, high INR at 2.0, hold AC (6) Ascites Current Visit: Yes Status: Acute Assessment and Plan: Patient has cirrhosis with ascites. Had 4.8 L ascites removed by paracentesis. Cytology results shows negative for malignancy. - Patient was replaced with albumin. (7) CAD (coronary artery disease) Current Visit: No Status: Acute Assessment and Plan: Continue home medications. Patient denies chest pain DVT Prophylaxis: EPCDs - Time Spent with Patient Total time spent is greater than 50% in coordination of care (as documented) at patient's floor/unit and/or counseling patient: 30 min 25 - 35 minutes Plan of Care Discussed with: patient Internal Medicine: Result - Labs CBC & Chem 7: 06/15/18 04:00 06/15/18 04:00 Labs: Short CBC 06/15/18 Range/Units 04:00 WBC 11.3 H (4.3-11.1) K/mcL Hgb 8.1 L (11.5-15.4) g/dL Hct 26.2 L (35.3-44.9) % Plt Count 157 (140-400) K/mcL Neutrophils # 9.4 H (1.6-8.9) K/mcL BMP 06/15/18 04:00 Sodium 141 Potassium 4.1 Chloride 110 H Carbon Dioxide 23 BUN 28 H Creatinine 1.14 Glucose 94 Calcium 9.7 Liver Function 06/15/18 06/15/18 Range/Units 04:00 04:00 Total Bilirubin 20.4 H 20.2 H (0.3-1.0) mg/dL Direct Bilirubin 12.0 H (0.0-0.2) mg/dL AST 228 H (13-39) Units/L ALT 76 H (7-52) Units/L Alkaline Phosphatase 174 H (34-104) Units/L Albumin 3.5 (3.5-5.7) g/dL - ABG Interpretation ABG results: PT/INR, D-dimer PT 22.0 Seconds (9.4-12.1) H 06/15/18 04:00 Consult Discharge Plan - Plan Referrals: Giorgio Landis MD [Partnered Physician] - (2) Cirrhosis Qualifiers: Hepatic cirrhosis type: unspecified hepatic cirrhosis Ascites presence: with ascites Qualified Code(s): K74.60 - Unspecified cirrhosis of liver; R18.8 - Other ascites (3) Abdominal pain Qualifiers: Abdominal location: generalized Qualified Code(s): R10.84 - Generalized abdominal pain (6) Ascites Qualifiers: Ascites type: other type Qualified Code(s): R18.8 - Other ascites (7) CAD (coronary artery disease) Qualifiers: Coronary Disease-Associated Artery/Lesion type: [place] artery [place] vs. [place] heart: [place] heart Associated angina: without angina Qualified Code(s): I25.10 - Atherosclerotic heart disease of [place] coronary artery without angina pectoris
--- NOTE | 2018-06-15 13:51 | Oncology Inp Progress Note ---
<ChidiChante L - Last Filed: 06/15/18 17:55> Date of Encounter: 06/15/18 Time of Encounter: 13:00 (1) Cirrhosis Status: Acute Assessment and plan: Imaging reveals cirrhosis with stigmata of portal hypertension New diagnosis as of May No reported h/o known hepatic steatosis, denies alcohol use In the setting of long standing MTX use (~30 years), known to cause hepatotoxocity Plan: GI consulted EGD yesterday which revealed grade III varices, 4 bands placed successfully, severe portal htn gastropathy throughout stomach Dr. Lockhart to discuss with Dr. Vee, patient has worsening total bilirubin up to 20.1 today, discussed with GI and they agree with transfer to [facility] for hepatology evaluation--Dr. Gatica aware Qualifiers: Hepatic cirrhosis type: unspecified hepatic cirrhosis Ascites presence: wi ascites Qualified Code(s): K74.60 - Unspecified cirrhosis of liver; R18.8 - Other ascites (2) Anemia Status: Acute Assessment and plan: Normocytic, normochromic anemia Denies melena/hematochezia History of prior pancytopenia, refused BMB in past In the setting of CKD, RA on MTX Stool occult blood + on 06/11/18 Iron/ferritin/B12 replete Folate low end normal 5.5 LDH mildly elevated-secondary to gastrointestinal etiology in setting of hyperbilirubinemia? Jordon mildly positive at 1+ Plan: Transfuse for hgb <7 GI consulted, s/p EGD as above Qualifiers: Qualified Code(s): D64.9 - Anemia, unspecified (3) Hepatocellular carcinoma Status: Acute Assessment and plan: MRI abdomen with and without contrast today reveals a 3.5 x 2.8 cm subcapsular mass in segment 7 of the liver is consistent with hepatocellular carcinoma (LR-5), 2.9 x 2.7 cm subcapsular lesion in segment 2 of the liver is hypointense to normal liver parenchyma on venous phase imaging and is intermediate probability for HCC (LR-3), Cirrhosis with stigmata of portal hypertension including borderline splenomegaly and moderate to large volume ascites. CT of the chest also reveals Persistent scattered pulmonary nodules, most c onsistent with metastatic disease. Peritoneal fluid is negative for malignancy per cytology report Plan: CEA normal AFP resulted significantly elevated at 2099, CA 19-9 133 Given LR-5 category designation on imaging, diagnosis may be made on imaging alone, discussed with Dr. Lockhart and planning on lung lesion biopsy today to establish diagnosis of metastatic disease Imaging is concerning for multifocal disease Her hyperbilirubinemia complicates candidacy for treatment, currently she is not a candidate for sorafenib, further treatment decision TBD per Dr. Lockhart-may be a candidate for immunotherapy INR 2 this am, unable to coordinate biopsy with IR in time for FFP, IR is now recommending biopsy per bronchoscopy---given pending transfer we will hold on biopsy and have accepting facility arrange Oncology: Subj Interval history: Ms. Westfall is sitting on her chair. She has been ambulating about in room. She continues to deny physical complaints. Denies pains, nausea, vomiting, diarrhea. NO s/s bleeding. Hungry and asking to eat. After discussion with IR, they would recommend biopsy via bronchoscopy, her INR is 2 today and we will need to correct prior to biopsy. In addition to this, her T Bili is increasing to 20.1 today, we are discussing case with GI - Constitutional General appearance: cooperative, no acute distress, no febrile - Head Head exam: Present: atraumatic - Eye Eye exam: Present: scleral icterus - ENT ENT exam: Present: mucous membranes dry, normal oropharynx - Respiratory Respiratory exam: Present: CTAB. Absent: respiratory distress - Cardiovascular Cardiovascular exam: Present: RRR - GI/Abdominal GI/Abdominal exam: Present: distended, normal bowel sounds, soft. Absent: tenderness - Extremities Exam Extremities exam: Present: pedal edema. Absent: calf tenderness Additional comments: pitting BLE edema - Neurological Exam Neurological exam: Present: alert, oriented X3, no focal deficits, strengths equal and symetr throughout - Psychiatric Psychiatric exam: Present: normal affect, normal mood - Skin Skin exam: Present: dry, intact, warm Oncology: Obj Data - Labs CBC & Chem 7: 06/15/18 04:00 06/15/18 04:00 Consult Discharge Plan - Plan Referrals: Giorgio Landis MD [Partnered Physician] - Inpatient Charges Provider: Dr. Thomas Pfeiffer <Alda Pfeiffer - Last Filed: 06/16/18 16:19> Date of Encounter: 06/16/18 Oncology: Subj Interval history: Patient seen examined bedside. She is eating dinner, no on O2. LFT abnormalities noted. With cirrhosis, HCC, she is being referrewd to [facility] hepatology for further w/u and management. She was recommended lung bx, to r/o metastatic disease, but INR remains elevated. Patient and family agreeable to plan of care as above and have been discussed by GI. I examined this patient and my medical decision-making was reviewed with the Advanced Practice Nurse, Chante Richey. I agree with the documented findings, disposition and treatment plan as described except to the extent set forth below. Oncology: Obj Data - Labs CBC & Chem 7: 06/15/18 04:00 06/15/18 04:00 Inpatient Charges Provider: Dr. Thomas Pfeiffer Follow up - Inpatient: [id number]
--- NOTE | 2018-06-15 14:09 | Event Note ---
Date of Encounter: 06/15/18 Time of Encounter: 14:07 Cirrhosis: EGD with grade 3 esophageal varices which were banded, portal hypertensive gastropathy, 2 cm hiatal hernia, esophageal stenosis, repeat EGD in 6 weeks for repeat banding, follow-up with Dr. Vee as outpatient in 2 weeks. Recommend 2-4 BMs daily, use Lactulose PRN. LFTs worsened today: Total bilirubin 20.2, AST 228, ALT 76. Will discuss with Dr. Vee.
[2018-06-15 14:27] VITALS: BP 98/67
--- NOTE | 2018-06-15 18:09 | Discharge Summary ---
Orders not resulted at time of discharge: Pending orders 06/14/18 10:02 Surgical Pathology [PTH] Routine Date of Encounter: 06/15/18 Time of Encounter: 17:00 - Discharge Diagnosis (1) Hepatocellular carcinoma Priority: Primary Status: Acute (2) Cirrhosis Priority: Primary Status: Acute Qualifiers: Hepatic cirrhosis type: unspecified hepatic cirrhosis Ascites presence: with ascites Qualified Code(s): K74.60 - Unspecified cirrhosis of liver; R18.8 - Other ascites (3) Abdominal pain Priority: Primary Status: Acute Qualifiers: Abdominal location: generalized Qualified Code(s): R10.84 - Generalized abdominal pain (4) Pulmonary nodules/lesions, multiple Priority: Primary Status: Acute (5) DVT prophylaxis Priority: Secondary Status: Acute (6) Ascites Priority: Primary Status: Acute Qualifiers: Ascites type: other type Qualified Code(s): R18.8 - Other ascites (7) CAD (coronary artery disease) Priority: Secondary Status: Acute Qualifiers: Coronary Disease-Associated Artery/Lesion type: [place] artery [place] vs. transplanted heart: [place] heart Associated angina: without angina Qualified Code(s): I25.10 - Atherosclerotic heart disease of [place] coronary artery without angina pectoris Hospital course: Ms. Westfall is a 78 year old female present to ER for abdominal pain and abdominal distention with jaundice. Patient has CT abdomen which shows liver mass and cirrhosis. CT chest shows lung nodules suspect metastasis. Paracentesis has been done, 4.7 L ascites fluid has been drained. Cell count shows PMN 46, not to support SBP. Cytology shows no malignancy cells identified. However, patient has elevated AFP and CA 19-9. AFP over 2000 and CA 19-9 133. Oncology and a GI consult was called. Patient had EGD, which shows esophagus vein varicosis. Patient was planned to have lung nodule biopsy but not perform the procedure because of worsening liver function and elevated INR. Patient's bilirubin level also getting worse from total bilirubin 10 on admission to 20s today. After discussion between GI and oncology, recommend patient transfer to [facility] for hematology evaluation. I have seen and examined the patient today. Patient feels weak. Denies abdominal pain, nausea, or vomiting. Has bowel movement. Vitals are stable. Patient and family agrees to be transferred to [facility]. Patient was accepted by [facility] and will transfer as bed available. Discharge discussed with: patient - Time Spent with Patient Total time spent providing and/or coordinating discharge services: 30 minutes Time spent: Greater than 30 minutes - Discharge Medications Prescriptions: Continued Metoprolol XL (24 HR) Succ [Toprol Xl] 25 mg PO DAILY Simvastatin [Zocor] 40 mg PO QPM Fluticasone/Salmeterol [Advair 100-50 Diskus] 1 puff IH BID PRN PRN Reason: Shortness Of Breath Alendronate Sodium [Fosamax] 70 mg PO MO Albuterol Sulfate [Albuterol Inhaler] 2 puff IH Q4H PRN PRN Reason: Shortness Of Breath Multivitamin [Daily Multiple Vitamin] 1 tab PO DAILY Furosemide [Lasix] 20 mg PO DAILY Home Medications: Metoprolol XL (24 HR) Succ [Toprol Xl] 25 mg PO DAILY 08/15/15 [History] Simvastatin [Zocor] 40 mg PO QPM 08/15/15 [History] Fluticasone/Salmeterol [Advair 100-50 Diskus] 1 puff IH BID PRN 02/05/16 [History] Alendronate Sodium [Fosamax] 70 mg PO MO 03/18/16 [History] Albuterol Sulfate [Albuterol Inhaler] 2 puff IH Q4H PRN 04/15/17 [History] Furosemide [Lasix] 20 mg PO DAILY 06/09/18 [History] Multivitamin [Daily Multiple Vitamin] 1 tab PO DAILY 06/10/18 [History] Allergies/Adverse Reactions: Allergy/AdvReac Type Severity Reaction Status Date / Time Iodinated Contrast- Oral and Allergy Hives Verified 06/10/18 13:24 IV Dye Date of admission: 06/10/18 04:05 Primary care physician: PCP NONE Consults: 06/10/18 04:05 Consult to Gastroenterology [CONS] Routine Consulting Provider: [facility] [place] Reason for Consult: new dx cirrhosis and painless jaudice Call Completed: No 06/10/18 04:11 Consult to Interventional Radiology [CONS] Routine Consulting Provider: Radiology [facility] [place] Reason for Consult: diagnositc and therapeutic paracentesis Call Completed: No 06/10/18 08:46 Consult to Surgery [CONS] Routine Consulting Provider: Acute Care Surgery Reason for Consult: paracentesis Call Completed: Yes 06/11/18 10:12 Consult to Oncology [CONS] Routine Consulting Provider: Oncology [facility] [place] Reason for Consult: Hepatic mass Call Completed: Yes 06/14/18 10:01 Consult to Interventional Radiology [CONS] Routine Consulting Provider: Radiology [facility] Reason for Consult: CT guided lung lesion biopsy--NPO for EGD today ~1200 Call Completed: Yes 06/15/18 14:03 Consult to Physical Therapy [CONS] Routine Comment: Evaluate, develop and implement POC Reason for Consult: Generalized weakness Does patient have active BEDREST order?: No Is patient medically & hemodynamically stable?: Yes Patient assessed for mobility or mobilized this visit?: No Discharging clinician: Ember Gatica Anticipated date of discharge: 06/15/18 - Constitutional Vitals: Temp Pulse Resp BP Pulse Ox 97.8 F 75 16 98/67 91 06/15/18 14:21 06/15/18 14:21 06/15/18 14:21 06/15/18 14:21 06/15/18 14:21 General appearance: Present: cooperative, A&O X 3, pleasant, no acute distress, answers questions appropriately Exam: Pt is AAO x 3, in NAD HEENT: NC/AT, PERRL, icterus Neck: Supple, no JVD, no LAD Lungs: CTA b/l Heart: S1S2, RRR Abd: Soft, nontender, BS present Ext: ROM wnl, moderate b/l pedal edema, no calf tenderness Neuro: No focal deficit - Patient Status Disposition: Transfer Critical Access Hosp Condition: Critical Functional capacity at discharge: wheelchair bound Overall status at discharge: patient is not back to baseline - Discharge Instructions Follow Up With: Giorgio Landis MD [Partnered Physician] - - Diet and Activity Activity: wear oxygen at all times Diet: low fat, low cholesterol, low salt diet
== END 2018-06-15 19:14 | disposition other institution (70) | DRG 433 ==
LOC: 3ANU → SUATTDRO 06-10 04:05
PROVIDERS: ADMIT Internal Medicine; ATTEND Internal Medicine